=== PATIENT | male | born 1955 | race Two or more races ===

== ENCOUNTER 2022-06-24 10:37 | Emergency (ER) | payer MEDICARE, MEDICAID ==
[~2022-06-24] VITALS: Ht 175.3 cm; Wt 87.5 kg
[2022-06-24 11:14] LABS: Basophils # (auto) 0 10 ^3/uL (0-0.2); Basophils % (auto) 0.4 % (0.0-2.0); Eosinophils # (auto) 0.1 10 ^3/uL (0-0.8); Eosinophils % (auto) 1.2 % (0.0-7.0); Hematocrit 46.4 % (41.0-53.0); Lymphocytes # (auto) 1.8 10 ^3/uL (0.4-5.4); Lymphocytes % (auto) 27.6 % (10.0-50.0); Mean Corpuscular Hemoglobin 29.5 pg (28.0-32.0); Mean Corpuscular Hgb Conc. 34.5 g/dL (32.0-36.0); Mean Corpuscular Volume 85.3 fL (80.0-100.0); Monocytes # (auto) 0.5 10 ^3/uL (0-1.3); Monocytes % (auto) 7.9 % (0.0-12.0); Neutrophils # (auto) 4.2 10 ^3/uL (1.6-8.6); Neutrophils % (auto) 62.9 % (37.0-80.0); Nucleated Red Blood Cells % 0.1 %; Red Blood Cells 5.44 10^6/uL (4.5-5.90); Red Cell Distribution Width 13.5 % (11.8-14.3); White Blood Cell 6.6 10^3/uL (4.4-10.8)
[2022-06-24] MEDS ORDERED: cloNIDine HCL 0.1 MG TAB PO ONE (11:15)
[2022-06-24 11:34] LABS: Calcium 9.1 mg/dL (8.5-10.1); Potassium 3.8 mmol/L (3.5-5.1)
[2022-06-24 11:36] LABS: BUN/Creatinine Ratio 17.8; Bilirubin, Total 0.9 mg/dL (0.2-1.0); Total Protein 7.4 g/dL (6.4-8.2)
[2022-06-24] MEDS ORDERED: LOSA-69 PO (12:51)
[2022-06-24] MEDS ORDERED: HYDR2.5C39 TOP (12:52)
[2022-06-24 15:13] VITALS: BP 163/116
== END 2022-06-24 15:23 | disposition home or self-care (01) ==
LOC: ER 10:37
DX: I16.0 Hypertensive urgency (principal); K64.9 Unspecified hemorrhoids; Z79.899 Other long term (current) drug therapy
CPT/HCPCS: 36415; 74176; 80053; 85025; 93005

== ENCOUNTER 2022-08-08 08:19 | Inpatient (IN) | payer MEDICARE, MEDICAID ==
[~2022-08-08] VITALS: Ht 170.2 cm; Wt 89.0 kg
[~2022-08-08 08:19] MED LIST: HYDR2.5C39 TOP; LOSA-69 PO
[2022-08-08 09:01] LABS: Urine Bacteria NONE SEEN /hpf (None Seen); Urine Blood 1+ /uL (Negative); Urine Specific Gravity 1.008 (1.001-1.035); Urine WBC <1 /hpf (0 - 3)
[2022-08-08 10:32] LABS: Basophils # (auto) 0.1 10 ^3/uL (0-0.2); Basophils % (auto) 0.5 % (0.0-2.0); Eosinophils # (auto) 0 10 ^3/uL (0-0.8); Eosinophils % (auto) 0.1 % (0.0-7.0); Hematocrit 52.9 % (41.0-53.0); Hemoglobin 17.6 g/dL (13.5-17.5); Lymphocytes # (auto) 0.9 10 ^3/uL (0.4-5.4); Mean Corpuscular Hemoglobin 29.3 pg (28.0-32.0); Mean Corpuscular Hgb Conc. 33.2 g/dL (32.0-36.0); Mean Corpuscular Volume 88.1 fL (80.0-100.0); Monocytes # (auto) 1.5 10 ^3/uL (0-1.3); Monocytes % (auto) 9.6 % (0.0-12.0); Neutrophils # (auto) 13.1 10 ^3/uL (1.6-8.6); Neutrophils % (auto) 83.8 % (37.0-80.0); Nucleated Red Blood Cells % 0.1 %; Red Cell Distribution Width 13.6 % (11.8-14.3); White Blood Cell 15.6 10^3/uL (4.4-10.8)
[2022-08-08 10:55] LABS: Albumin 4.1 g/dL (3.4-5.0); Calcium 9.6 mg/dL (8.5-10.1); Potassium 4.4 mmol/L (3.5-5.1)
[2022-08-08 11:00] LABS: BUN/Creatinine Ratio 10.6; Bilirubin, Total 1.8 mg/dL (0.2-1.0); Total Protein 8.3 g/dL (6.4-8.2)
[2022-08-08] MEDS ORDERED: SODIUM CHLORIDE 0.9% 500 ML IVB ONE (11:30)
[2022-08-08] MEDS ORDERED: SODIUM CHLORIDE 0.9% 1,000 ML IV ONE ×2 (11:30→17:30)
[2022-08-08 11:47] LABS: Magnesium 2.8 mg/dL (1.6-2.6)
[2022-08-08 11:48] LABS: INR 0.99 (0.9-1.15); Partial Thromboplastin Time 28.5 sec (24.6-33.4)
[2022-08-08] MEDS ORDERED: cloNIDine HCL 0.1 MG TAB PO ONE (12:00)
[2022-08-08] MEDS ORDERED: TAMSULOSIN HYDROCHLORIDE 0.4 MG CAP PO ONE (14:00)
[2022-08-08] MEDS ORDERED: cefTRIAXone 1GM/50ML D5W 50 ML IV ONE ×2 (14:30→16:30)
[2022-08-08] MEDS ORDERED: TAM04C PO (15:06)
[2022-08-08] MEDS ORDERED: FINA5TAB4 PO (15:06)
[2022-08-08] MEDS ORDERED: DOXY100C PO (15:06)
[2022-08-08] MEDS ORDERED: hydrALAZINE HCL 20 MG/ML VL IV ONE (16:30)
[2022-08-08] MEDS ORDERED: LABETALOL HCL 5 MG/ML 4ML SYRINGE IV ONE (16:30)
[2022-08-08] MEDS ORDERED: DOCUSATE SOD 100 MG CAP PO PRN (17:15)
[2022-08-08] MEDS ORDERED: HYDROcodone-ACET 5/325MG TAB PO PRN (17:15)
[2022-08-08] MEDS ORDERED: MORPHINE SULFATE INJ 2 MG/ml SYRG IV PRN (17:15)
[2022-08-08] MEDS ORDERED: ONDANSETRON HCL 4 MG/2 ML VIAL IV PRN (17:15)
[2022-08-08] MEDS ORDERED: ACETAMINOPHEN 325 MG TAB PO PRN (17:15)
[2022-08-08] MEDS: SODIUM CHLORIDE 0.9% 1,000 ML IV SCH (17:15)
[2022-08-08 18:10] LABS: Cholesterol 205 mg/dL (< 200); Triglycerides 68 mg/dL (< 150)
[2022-08-08 18:12] LABS: HDL Cholesterol 69 mg/dL (40-59); LDL Cholesterol 133 mg/dL (< 100)
[2022-08-09 01:07] VITALS: BP 146/89
[2022-08-09] MEDS: SODIUM CHLORIDE 0.9% 1,000 ML IV SCH ×2 (01:44→13:15)
[2022-08-09 05:00] VITALS: BP 129/85
[2022-08-09 06:34] LABS: Basophils # (auto) 0.1 10 ^3/uL (0-0.2); Basophils % (auto) 0.9 % (0.0-2.0); Eosinophils # (auto) 0.4 10 ^3/uL (0-0.8); Eosinophils % (auto) 3.7 % (0.0-7.0); Hematocrit 41.3 % (41.0-53.0); Hemoglobin 14.4 g/dL (13.5-17.5); Lymphocytes # (auto) 1.4 10 ^3/uL (0.4-5.4); Mean Corpuscular Hemoglobin 30.4 pg (28.0-32.0); Mean Corpuscular Hgb Conc. 34.8 g/dL (32.0-36.0); Mean Corpuscular Volume 87.3 fL (80.0-100.0); Monocytes # (auto) 1.2 10 ^3/uL (0-1.3); Monocytes % (auto) 12.5 % (0.0-12.0); Neutrophils # (auto) 6.7 10 ^3/uL (1.6-8.6); Neutrophils % (auto) 68.9 % (37.0-80.0); Nucleated Red Blood Cells % 0.1 %; Red Blood Cells 4.73 10^6/uL (4.5-5.90); Red Cell Distribution Width 13.6 % (11.8-14.3); White Blood Cell 9.8 10^3/uL (4.4-10.8)
[2022-08-09 07:10] LABS: Albumin 2.8 g/dL (3.4-5.0); BUN/Creatinine Ratio 16.2; Bilirubin, Total 1.2 mg/dL (0.2-1.0); Calcium 8.3 mg/dL (8.5-10.1); Potassium 4.1 mmol/L (3.5-5.1); Total Protein 5.5 g/dL (6.4-8.2)
[2022-08-09 08:46] VITALS: BP 135/93
[2022-08-09] MEDS: cefTRIAXone 1GM/50ML D5W 50 ML IV SCH (09:19)
[2022-08-09] MEDS: FINASTERIDE 5 MG TAB PO SCH (09:19)
[2022-08-09] MEDS: LOSARTAN POTASSIUM 50 MG TAB PO SCH (09:20)
[2022-08-09] MEDS ORDERED: ENOXAPARIN SOD 40 MG/0.4 ML SYRINGE SC SCH (10:00)
[2022-08-09 13:21] VITALS: BP 156/100
[2022-08-09 17:00] VITALS: BP 166/104
[2022-08-09] MEDS: TAMSULOSIN HYDROCHLORIDE 0.4 MG CAP PO SCH (18:13)
[2022-08-09] MEDS: hydrALAZINE HCL 20 MG/ML VL IV PRN (18:32)
[2022-08-09 22:00] VITALS: BP 160/110
[2022-08-09] MEDS ORDERED: ATORVASTATIN 20 MG TAB PO SCH (22:00)
[2022-08-09] MEDS ORDERED: LABETALOL HCL 5 MG/ML 4ML SYRINGE IV ONE (22:15)
[2022-08-10] MEDS: SODIUM CHLORIDE 0.9% 1,000 ML IV SCH (02:05)
[2022-08-10] MEDS: hydrALAZINE HCL 20 MG/ML VL IV PRN (04:01)
[2022-08-10 05:00] VITALS: BP 160/105
[2022-08-10 07:23] LABS: Basophils # (auto) 0.1 10 ^3/uL (0-0.2); Basophils % (auto) 1.4 % (0.0-2.0); Eosinophils # (auto) 0.4 10 ^3/uL (0-0.8); Eosinophils % (auto) 5.3 % (0.0-7.0); Hematocrit 40.6 % (41.0-53.0); Lymphocytes # (auto) 1.7 10 ^3/uL (0.4-5.4); Lymphocytes % (auto) 23.2 % (10.0-50.0); Mean Corpuscular Hemoglobin 30.1 pg (28.0-32.0); Mean Corpuscular Hgb Conc. 34.6 g/dL (32.0-36.0); Mean Corpuscular Volume 87.2 fL (80.0-100.0); Monocytes # (auto) 0.8 10 ^3/uL (0-1.3); Monocytes % (auto) 10.7 % (0.0-12.0); Neutrophils # (auto) 4.3 10 ^3/uL (1.6-8.6); Neutrophils % (auto) 59.4 % (37.0-80.0); Red Blood Cells 4.66 10^6/uL (4.5-5.90); Red Cell Distribution Width 13.4 % (11.8-14.3); White Blood Cell 7.2 10^3/uL (4.4-10.8)
[2022-08-10 07:35] LABS: Calcium 8.3 mg/dL (8.5-10.1); Potassium 3.8 mmol/L (3.5-5.1)
[2022-08-10 07:39] LABS: BUN/Creatinine Ratio 25.3
[2022-08-10 08:00] VITALS: BP 156/99
[2022-08-10] MEDS: cefTRIAXone 1GM/50ML D5W 50 ML IV SCH (09:17)
[2022-08-10] MEDS: FINASTERIDE 5 MG TAB PO SCH (09:18)
[2022-08-10] MEDS: LOSARTAN POTASSIUM 50 MG TAB PO SCH (09:18)
[2022-08-10] MEDS ORDERED: ATOR20TA50 PO (11:58)
[2022-08-10] MEDS ORDERED: TAM04C PO (11:58)
[2022-08-10] MEDS ORDERED: LEVO500T31 PO (11:58)
[2022-08-10] MEDS ORDERED: LOSA-69 PO (11:58)
[2022-08-10 12:00] VITALS: BP 158/100
[2022-08-10 15:55] VITALS: BP 156/99
[2022-08-10 16:00] VITALS: BP 164/116
[2022-08-10] MEDS: TAMSULOSIN HYDROCHLORIDE 0.4 MG CAP PO SCH (18:15)
== END 2022-08-10 18:40 | disposition home or self-care (01) | DRG 304 ==
LOC: ER 08:19 → OVERFLOW 17:14 → WEST WING 23:30
PROVIDERS: ADMIT Nurse Practitioner Family; ATTEND Internal Medicine
DX: I16.0 Hypertensive urgency (principal); N17.0 Acute kidney failure with tubular necrosis; N13.6 Pyonephrosis; K43.9 Ventral hernia without obstruction or gangrene; N32.0 Bladder-neck obstruction; N40.1 Benign prostatic hyperplasia with lower urinary tract symptoms; K64.9 Unspecified hemorrhoids; K42.9 Umbilical hernia without obstruction or gangrene; Z20.822 Contact with and (suspected) exposure to COVID-19; I10 Essential (primary) hypertension; E86.0 Dehydration; R33.8 Other retention of urine; E78.5 Hyperlipidemia, unspecified; E66.9 Obesity, unspecified; Z79.899 Other long term (current) drug therapy; Z91.14 Patient's other noncompliance with medication regimen; Z68.30 Body mass index [BMI] 30.0-30.9, adult; K57.90 Diverticulosis of intestine, part unspecified, without perforation or abscess without bleeding
CPT/HCPCS: 36415; 71046; 74176; 76775; 80048; 80053; 80061; 81001; 83036; 83690; 83735; 84154; 85025; 85610; 85730; 87040; 87426; G0378; J0696; J3490

== ENCOUNTER → 2022-09-02 | Outpatient (CLI) | payer MEDICARE, MEDICAID ==
[~2022-09-02] MED LIST changes: +ATOR20TA50 PO; +LEVO500T31 PO; +TAM04C PO
[2022-09-02 10:47] LABS: BUN/Creatinine Ratio 16.9; Calcium 9.2 mg/dL (8.5-10.1)
== END | disposition home or self-care (01) ==
LOC: LAB 09:40
PROVIDERS: ATTEND Urology
DX: N13.2 Hydronephrosis with renal and ureteral calculous obstruction (principal); R33.9 Retention of urine, unspecified; N40.1 Benign prostatic hyperplasia with lower urinary tract symptoms
CPT/HCPCS: 36415; 80048; 84153

== ENCOUNTER → 2022-11-03 | Outpatient (CLI) | payer MEDICARE, MEDICAID ==
[2022-11-03 12:08] LABS: Basophils # (auto) 0.1 10 ^3/uL (0-0.2); Basophils % (auto) 0.8 % (0.0-2.0); Eosinophils # (auto) 0.1 10 ^3/uL (0-0.8); Eosinophils % (auto) 2.1 % (0.0-7.0); Hematocrit 47.3 % (41.0-53.0); Hemoglobin 15.7 g/dL (13.5-17.5); Lymphocytes # (auto) 1.7 10 ^3/uL (0.4-5.4); Lymphocytes % (auto) 26.3 % (10.0-50.0); Mean Corpuscular Hemoglobin 28.1 pg (28.0-32.0); Mean Corpuscular Hgb Conc. 33.2 g/dL (32.0-36.0); Mean Corpuscular Volume 84.5 fL (80.0-100.0); Monocytes # (auto) 0.7 10 ^3/uL (0-1.3); Monocytes % (auto) 10.4 % (0.0-12.0); Neutrophils % (auto) 60.4 % (37.0-80.0); Nucleated Red Blood Cells % 0.1 %; Red Cell Distribution Width 13.8 % (11.8-14.3); White Blood Cell 6.6 10^3/uL (4.4-10.8)
[2022-11-03 12:37] LABS: Potassium 4.4 mmol/L (3.5-5.1)
[2022-11-03 12:51] LABS: BUN/Creatinine Ratio 16.7; Calcium 9.1 mg/dL (8.5-10.1); Total Protein 8.2 g/dL (6.4-8.2)
[2022-11-03 13:17] LABS: Urine Bacteria FEW /hpf (None Seen); Urine Blood TRACE /uL (Negative); Urine Specific Gravity 1.003 (1.001-1.035); Urine WBC 12 /hpf (0 - 3)
== END | disposition home or self-care (01) ==
LOC: LAB 11:40
PROVIDERS: ATTEND Student in an Organized Health Care Education/Training Program
DX: I10 Essential (primary) hypertension (principal); N40.0 Benign prostatic hyperplasia without lower urinary tract symptoms; R73.9 Hyperglycemia, unspecified
CPT/HCPCS: 36415; 80053; 80061; 81001; 83036; 84153; 84443; 85025

== ENCOUNTER 2022-11-11 06:03 | Day surgery (SDC) | payer MEDICARE, MEDICAID ==
[2022-11-09 12:37] LABS: Basophils # (auto) 0.1 10 ^3/uL (0-0.2); Basophils % (auto) 1.4 % (0.0-2.0); Eosinophils # (auto) 0.1 10 ^3/uL (0-0.8); Eosinophils % (auto) 1.9 % (0.0-7.0); Mean Corpuscular Hemoglobin 28.3 pg (28.0-32.0); Mean Corpuscular Hgb Conc. 33.9 g/dL (32.0-36.0); Mean Corpuscular Volume 83.5 fL (80.0-100.0); Monocytes # (auto) 0.7 10 ^3/uL (0-1.3); Neutrophils # (auto) 4.9 10 ^3/uL (1.6-8.6); Neutrophils % (auto) 62.7 % (37.0-80.0); Nucleated Red Blood Cells % 0.3 %; Red Blood Cells 5.63 10^6/uL (4.5-5.90); Red Cell Distribution Width 14.2 % (11.8-14.3); White Blood Cell 7.8 10^3/uL (4.4-10.8)
[2022-11-09 12:48] LABS: Urine Bacteria MANY /hpf (None Seen); Urine Blood Negative /uL (Negative); Urine Mucus FEW (None Seen); Urine WBC 46 /hpf (0 - 3)
[2022-11-09 12:51] LABS: Partial Thromboplastin Time 27.6 sec (24.6-33.4)
[2022-11-09 13:11] LABS: Potassium 4.2 mmol/L (3.5-5.1)
[2022-11-09 13:19] LABS: Albumin 3.9 g/dL (3.4-5.0); BUN/Creatinine Ratio 16.5; Calcium 9.5 mg/dL (8.5-10.1)
[~2022-11-11] VITALS: Ht 175.3 cm; Wt 86.2 kg
[2022-11-11] MEDS ORDERED: CIPROFLOXACIN 400MG/200ML 200 ML IV ONE (06:49)
[2022-11-11] MEDS ORDERED: PROPOFOL 10 MG/ML 20 ML IV ONE (06:58)
[2022-11-11] MEDS ORDERED: GLYCOPYRROLATE 0.2 MG/ML 1ML VIAL ONE (06:58)
[2022-11-11] MEDS ORDERED: ONDANSETRON HCL 4 MG/2 ML VIAL ONE (06:58)
[2022-11-11] MEDS ORDERED: DexAMETHasone SOD PHOS 10MG/1ML VIAL INJ ONE (06:58)
[2022-11-11] MEDS ORDERED: LIDOCAINE 1%HCL (LOCAL ANESTH) 10 ML MDV ONE (07:01)
[2022-11-11] MEDS ORDERED: LIDOCAINE 1% (LOCAL ANESTH.) PF 5ml SDV ONE (07:01)
[2022-11-11] MEDS ORDERED: LIDOCAINE 2%HCL (LOCAL ANESTH.) INJ 10ml MDV ONE (07:01)
[2022-11-11] MEDS ORDERED: fentaNYL CITRATE 100 MCG/2 ML VL ONE (07:13)
[2022-11-11] MEDS ORDERED: LIDOCAINE 2% JELLY 11ml (GLYDO) ONE (07:26)
[2022-11-11] MEDS ORDERED: ESMOLOL HCL 10 ML IV ONE (07:37)
[2022-11-11] MEDS ORDERED: hydrALAZINE HCL 20 MG/ML VL ONE (07:45)
[2022-11-11] MEDS ORDERED: HYDROmorphone HCL 2 MG/ML VL/or syr IV PRN (09:30)
[2022-11-11] MEDS ORDERED: fentaNYL CITRATE 100 MCG/2 ML VL IV PRN (09:30)
[2022-11-11] MEDS ORDERED: hydrALAZINE HCL 20 MG/ML VL IV PRN (09:30)
[2022-11-11] MEDS ORDERED: FLUMAZENIL 0.1 MG/ML INJ 10ML MDV IV PRN (09:30)
[2022-11-11] MEDS ORDERED: ePHEDrine SULFATE 50 MG/ML AMP IV PRN (09:30)
[2022-11-11] MEDS ORDERED: ONDANSETRON HCL 4 MG/2 ML VIAL IV PRN (09:30)
[2022-11-11] MEDS ORDERED: NALOXONE HCL 0.4 MG/ML VIAL IV PRN (09:30)
[2022-11-11] MEDS ORDERED: LABETALOL HCL 5 MG/ML 4ML SYRINGE IV PRN (09:30)
[2022-11-11 10:15] VITALS: BP 144/99
[2022-11-12] MEDS ORDERED: FIN5T PO (23:27)
== END 2022-11-11 10:25 | disposition home or self-care (01) ==
LOC: SUR 06:03
PROVIDERS: ATTEND Urology
DX: N40.1 Benign prostatic hyperplasia with lower urinary tract symptoms (principal); R97.20 Elevated prostate specific antigen [PSA]; R33.9 Retention of urine, unspecified; I10 Essential (primary) hypertension; E78.5 Hyperlipidemia, unspecified; I49.9 Cardiac arrhythmia, unspecified; Z79.899 Other long term (current) drug therapy; Z98.890 Other specified postprocedural states; Z20.822 Contact with and (suspected) exposure to COVID-19
CPT/HCPCS: 52601; J0360; J0744; J1100; J2001; J2405; J2704; J3010; 36415; 80053; 81001; 85025; 85610; 85730; 86850; 86900; 86901; 87086

== ENCOUNTER 2022-11-12 11:37 | Inpatient (IN) | payer MEDICARE, MEDICAID ==
[~2022-11-12] VITALS: Ht 175.3 cm; Wt 85.1 kg
[2022-11-12 12:24] LABS: Basophils # (auto) 0 10 ^3/uL (0-0.2); Eosinophils # (auto) 0 10 ^3/uL (0-0.8); Eosinophils % (auto) 0.1 % (0.0-7.0); Lymphocytes # (auto) 0.7 10 ^3/uL (0.4-5.4); Red Blood Cells 6.03 10^6/uL (4.5-5.90)
[2022-11-12 12:26] LABS: Basophils % (auto) 0.2 % (0.0-2.0); Hematocrit 51.5 % (41.0-53.0); Hemoglobin 17.3 g/dL (13.5-17.5); Lymphocytes % (auto) 4.1 % (10.0-50.0); Mean Corpuscular Hemoglobin 28.6 pg (28.0-32.0); Mean Corpuscular Hgb Conc. 33.6 g/dL (32.0-36.0); Mean Corpuscular Volume 85.3 fL (80.0-100.0); Monocytes # (auto) 1.5 10 ^3/uL (0-1.3); Monocytes % (auto) 8.5 % (0.0-12.0); Neutrophils # (auto) 15.5 10 ^3/uL (1.6-8.6); Neutrophils % (auto) 87.1 % (37.0-80.0); Nucleated Red Blood Cells % 0.1 %; White Blood Cell 17.8 10^3/uL (4.4-10.8)
[2022-11-12] MEDS ORDERED: cloNIDine HCL 0.1 MG TAB PO ONE (12:30)
[2022-11-12 12:47] LABS: INR 1.07 (0.9-1.15); Partial Thromboplastin Time 26.7 sec (24.6-33.4)
[2022-11-12] MEDS ORDERED: ACETAMINOPHEN 325 MG TAB PO PRN (15:30)
[2022-11-12] MEDS ORDERED: ONDANSETRON HCL 4 MG/2 ML VIAL IV PRN (15:30)
[2022-11-12] MEDS ORDERED: METOCLOPRAMIDE HCL 5MG/ml INJ 2ml VIAL IV PRN (15:30)
[2022-11-12] MEDS ORDERED: cloNIDine HCL 0.1 MG TAB PO PRN (15:30)
[2022-11-12] MEDS ORDERED: DOCUSATE SOD 100 MG CAP PO PRN (15:30)
[2022-11-12] MEDS ORDERED: SODIUM CHLORIDE 0.9% 1,000 ML IV SCH (15:30)
[2022-11-12] MEDS ORDERED: MORPHINE SULFATE INJ 2 MG/ml SYRG IV PRN (15:30)
[2022-11-12] MEDS ORDERED: TEMAZEPAM 15 MG CAP PO PRN (15:30)
[2022-11-12] MEDS ORDERED: MAALOX PLUS or MAALOX 30 ML PO PRN (15:30)
[2022-11-12 15:49] LABS: Urine Bacteria NONE SEEN /hpf (None Seen); Urine Blood 3+ /uL (Negative); Urine WBC 808 /hpf (0 - 3); Urine WBC Clumps PRESENT /hpf (None Seen)
[2022-11-12 15:54] LABS: Urine Specific Gravity 1.018 (1.001-1.035)
[2022-11-12] MEDS: cefTRIAXone 1GM/50ML D5W 50 ML IV SCH (16:32)
[2022-11-12 22:00] VITALS: BP 171/106
[2022-11-12] MEDS ORDERED: FIN5T PO (23:27)
[2022-11-13 05:00] VITALS: BP 147/100
[2022-11-13 06:34] LABS: Basophils # (auto) 0 10 ^3/uL (0-0.2); Basophils % (auto) 0.4 % (0.0-2.0); Eosinophils # (auto) 0.1 10 ^3/uL (0-0.8); Eosinophils % (auto) 0.5 % (0.0-7.0); Hematocrit 45.5 % (41.0-53.0); Hemoglobin 15.1 g/dL (13.5-17.5); Lymphocytes # (auto) 1.7 10 ^3/uL (0.4-5.4); Lymphocytes % (auto) 13.2 % (10.0-50.0); Mean Corpuscular Hemoglobin 28.2 pg (28.0-32.0); Mean Corpuscular Hgb Conc. 33.1 g/dL (32.0-36.0); Mean Corpuscular Volume 85.2 fL (80.0-100.0); Monocytes # (auto) 1.6 10 ^3/uL (0-1.3); Monocytes % (auto) 11.8 % (0.0-12.0); Neutrophils # (auto) 9.8 10 ^3/uL (1.6-8.6); Neutrophils % (auto) 74.1 % (37.0-80.0); Red Blood Cells 5.34 10^6/uL (4.5-5.90); Red Cell Distribution Width 14.8 % (11.8-14.3); White Blood Cell 13.2 10^3/uL (4.4-10.8)
[2022-11-13 07:18] LABS: Potassium 5.3 mmol/L (3.5-5.1)
[2022-11-13 07:26] LABS: BUN/Creatinine Ratio 23.4; Calcium 9.2 mg/dL (8.5-10.1)
[2022-11-13 08:00] VITALS: BP 173/105
[2022-11-13] MEDS: cefTRIAXone 1GM/50ML D5W 50 ML IV SCH (09:11)
[2022-11-13 12:00] VITALS: BP 142/88
[2022-11-13] MEDS ORDERED: amLODIPine BESYLATE 5 MG TAB PO ONE (12:15)
[2022-11-13] MEDS: SODIUM CHLORIDE 0.9% 1,000 ML IV SCH ×2 (15:30→22:46)
[2022-11-13 16:00] VITALS: BP 145/94
[2022-11-13] MEDS: HYDROcodone-ACET 5/325MG TAB PO PRN (16:43)
[2022-11-13] MEDS: TAMSULOSIN HYDROCHLORIDE 0.4 MG CAP PO SCH (18:17)
[2022-11-13 21:47] VITALS: BP 129/82
[2022-11-14 04:46] VITALS: BP 156/97
[2022-11-14] MEDS: HYDROcodone-ACET 5/325MG TAB PO PRN ×3 (05:25→18:10)
[2022-11-14 06:12] LABS: Potassium 4.5 mmol/L (3.5-5.1)
[2022-11-14 06:21] LABS: Calcium 8.7 mg/dL (8.5-10.1)
[2022-11-14 08:00] VITALS: BP 158/103
[2022-11-14 08:30] VITALS: BP 158/103
[2022-11-14] MEDS: cefTRIAXone 1GM/50ML D5W 50 ML IV SCH (10:08)
[2022-11-14] MEDS: amLODIPine BESYLATE 5 MG TAB PO SCH (10:09)
[2022-11-14] MEDS: FINASTERIDE 5 MG TAB PO SCH (10:09)
[2022-11-14] MEDS: cloNIDine HCL 0.1 MG TAB PO PRN (12:35)
[2022-11-14 13:00] VITALS: BP 171/69
[2022-11-14] MEDS: SODIUM CHLORIDE 0.9% 1,000 ML IV SCH ×2 (13:35→18:00)
[2022-11-14 16:55] VITALS: BP 151/95
[2022-11-14] MEDS: TAMSULOSIN HYDROCHLORIDE 0.4 MG CAP PO SCH (18:05)
[2022-11-14 22:00] VITALS: BP 150/102
[2022-11-15] MEDS: SODIUM CHLORIDE 0.9% 1,000 ML IV SCH (02:02)
[2022-11-15 05:00] VITALS: BP 167/99
[2022-11-15] MEDS: cloNIDine HCL 0.1 MG TAB PO PRN ×2 (05:10→11:47)
[2022-11-15] MEDS: HYDROcodone-ACET 5/325MG TAB PO PRN ×3 (07:35→22:51)
[2022-11-15 08:05] VITALS: BP 165/98
[2022-11-15 08:15] VITALS: BP 165/98
[2022-11-15] MEDS: cefTRIAXone 1GM/50ML D5W 50 ML IV SCH (10:19)
[2022-11-15] MEDS: FINASTERIDE 5 MG TAB PO SCH (10:20)
[2022-11-15] MEDS: amLODIPine BESYLATE 5 MG TAB PO SCH (10:20)
[2022-11-15 11:43] VITALS: BP 172/102
[2022-11-15 16:49] VITALS: BP 165/104
[2022-11-15] MEDS: TAMSULOSIN HYDROCHLORIDE 0.4 MG CAP PO SCH (18:31)
[2022-11-15 22:00] VITALS: BP 133/82
[2022-11-16 05:00] VITALS: BP 170/109
[2022-11-16] MEDS: cloNIDine HCL 0.1 MG TAB PO PRN (07:30)
[2022-11-16] MEDS: cefTRIAXone 1GM/50ML D5W 50 ML IV SCH (09:24)
[2022-11-16] MEDS: amLODIPine BESYLATE 5 MG TAB PO SCH (09:24)
[2022-11-16] MEDS: FINASTERIDE 5 MG TAB PO SCH (09:24)
[2022-11-16 09:45] VITALS: BP 166/99
[2022-11-16] MEDS ORDERED: DOCUSATE SOD 100 MG CAP PO ONE (12:15)
[2022-11-16] MEDS ORDERED: LOSARTAN POTASSIUM 50 MG TAB PO ONE (12:15)
[2022-11-16] MEDS ORDERED: METOCLOPRAMIDE HCL 5MG/ml INJ 2ml VIAL IV PRN (12:15)
[2022-11-16] MEDS ORDERED: LACTULOSE 20Gm/30ML SOLN PO ONE (12:15)
[2022-11-16 12:30] VITALS: BP 154/107
[2022-11-16] MEDS ORDERED: SODIUM CHLORIDE 0.9% 1,000 ML IV ONE ×2 (14:15)
[2022-11-16] MEDS ORDERED: TAMSULOSIN HYDROCHLORIDE 0.4 MG CAP PO SCH (14:30)
[2022-11-16 22:00] VITALS: BP 140/89
[2022-11-16] MEDS: HYDROcodone-ACET 5/325MG TAB PO PRN (23:00)
[2022-11-17 05:00] VITALS: BP 155/102
[2022-11-17] MEDS: cloNIDine HCL 0.1 MG TAB PO PRN (06:29)
[2022-11-17 07:10] LABS: Basophils # (auto) 0.1 10 ^3/uL (0-0.2); Basophils % (auto) 0.8 % (0.0-2.0); Eosinophils # (auto) 0.4 10 ^3/uL (0-0.8); Eosinophils % (auto) 4.9 % (0.0-7.0); Hemoglobin 13.8 g/dL (13.5-17.5); Lymphocytes # (auto) 1.4 10 ^3/uL (0.4-5.4); Lymphocytes % (auto) 17.1 % (10.0-50.0); Mean Corpuscular Hemoglobin 28.5 pg (28.0-32.0); Mean Corpuscular Hgb Conc. 33.6 g/dL (32.0-36.0); Mean Corpuscular Volume 84.9 fL (80.0-100.0); Monocytes # (auto) 0.8 10 ^3/uL (0-1.3); Monocytes % (auto) 10.2 % (0.0-12.0); Neutrophils # (auto) 5.6 10 ^3/uL (1.6-8.6); Nucleated Red Blood Cells % 0.1 %; Red Blood Cells 4.83 10^6/uL (4.5-5.90); Red Cell Distribution Width 14.4 % (11.8-14.3); White Blood Cell 8.3 10^3/uL (4.4-10.8)
[2022-11-17 07:20] LABS: BUN/Creatinine Ratio 21.7; Calcium 8.9 mg/dL (8.5-10.1); Potassium 4.2 mmol/L (3.5-5.1)
[2022-11-17 08:30] VITALS: BP 148/94
[2022-11-17] MEDS: amLODIPine BESYLATE 5 MG TAB PO SCH (08:39)
[2022-11-17] MEDS: LOSARTAN POTASSIUM 50 MG TAB PO SCH (08:39)
[2022-11-17] MEDS: FINASTERIDE 5 MG TAB PO SCH (08:39)
[2022-11-17] MEDS: cefTRIAXone 1GM/50ML D5W 50 ML IV SCH (08:53)
[2022-11-17 12:15] VITALS: BP 162/95
[2022-11-17 16:21] VITALS: BP 147/105
[2022-11-17] MEDS: HYDROcodone-ACET 5/325MG TAB PO PRN (19:59)
[2022-11-17 22:21] VITALS: BP 135/93
[2022-11-18] MEDS: HYDROcodone-ACET 5/325MG TAB PO PRN ×2 (01:41→06:36)
[2022-11-18 04:36] VITALS: BP 163/92
[2022-11-18] MEDS: LOSARTAN POTASSIUM 50 MG TAB PO SCH (08:20)
[2022-11-18] MEDS: amLODIPine BESYLATE 5 MG TAB PO SCH (08:21)
[2022-11-18] MEDS: FINASTERIDE 5 MG TAB PO SCH (08:21)
[2022-11-18 09:11] VITALS: BP 170/112
[2022-11-18] MEDS ORDERED: hydrALAZINE HCL 20 MG/ML VL IV PRN (12:15)
[2022-11-18] MEDS: cefTRIAXone 1GM/50ML D5W 50 ML IV SCH (12:18)
[2022-11-18 12:45] VITALS: BP 163/107
[2022-11-18 16:43] VITALS: BP 155/98
[2022-11-18] MEDS ORDERED: FLEET ENEMA(ADULT) 135 ML PR ONE (18:00)
[2022-11-18 22:00] VITALS: BP 157/90
[2022-11-19] MEDS ORDERED: DexAMETHasone SOD PHOS 10MG/1ML VIAL INJ ONE (00:37)
[2022-11-19] MEDS ORDERED: GLYCOPYRROLATE 0.2 MG/ML 1ML VIAL ONE (00:37)
[2022-11-19] MEDS ORDERED: ONDANSETRON HCL 4 MG/2 ML VIAL ONE (00:37)
[2022-11-19] MEDS ORDERED: fentaNYL CITRATE 100 MCG/2 ML VL ONE (00:37)
[2022-11-19] MEDS ORDERED: LIDOCAINE 2% (LOCAL ANESTH.) PF 5ml SDV ONE (00:37)
[2022-11-19] MEDS ORDERED: MIDAZOLAM HCL 2MG/2ML 2ml VIAL (1mg/ml) ONE (00:37)
[2022-11-19] MEDS ORDERED: MEPERIDINE HCL (25 MG/ML) 1ML VIAL ONE (00:37)
[2022-11-19] MEDS ORDERED: ePHEDrine SULFATE 50 MG/ML AMP ONE (00:37)
[2022-11-19] MEDS ORDERED: PROPOFOL 10 MG/ML 20 ML IV ONE (00:37)
[2022-11-19] MEDS ORDERED: SUCCINYLCHOLINE CHLORIDE 20 MG/ML 10ML VIAL IV ONE (01:10)
[2022-11-19] MEDS ORDERED: HYDROmorphone HCL 2 MG/ML VL/or syr ONE (01:20)
[2022-11-19 05:00] VITALS: BP 134/92
[2022-11-19 06:27] LABS: Basophils # (auto) 0 10 ^3/uL (0-0.2); Basophils % (auto) 0.3 % (0.0-2.0); Eosinophils # (auto) 0 10 ^3/uL (0-0.8); Eosinophils % (auto) 0.1 % (0.0-7.0); Hematocrit 42.5 % (41.0-53.0); Hemoglobin 14.7 g/dL (13.5-17.5); Lymphocytes # (auto) 0.6 10 ^3/uL (0.4-5.4); Lymphocytes % (auto) 6.2 % (10.0-50.0); Mean Corpuscular Hgb Conc. 34.6 g/dL (32.0-36.0); Mean Corpuscular Volume 83.7 fL (80.0-100.0); Monocytes # (auto) 0.2 10 ^3/uL (0-1.3); Monocytes % (auto) 2.6 % (0.0-12.0); Neutrophils # (auto) 8.3 10 ^3/uL (1.6-8.6); Neutrophils % (auto) 90.8 % (37.0-80.0); Nucleated Red Blood Cells % 0.1 %; Red Blood Cells 5.08 10^6/uL (4.5-5.90); White Blood Cell 9.2 10^3/uL (4.4-10.8)
[2022-11-19 06:42] LABS: Potassium 4.1 mmol/L (3.5-5.1)
[2022-11-19 06:47] LABS: BUN/Creatinine Ratio 17.4; Calcium 9.4 mg/dL (8.5-10.1)
[2022-11-19 09:00] VITALS: BP 145/94
[2022-11-19] MEDS: cefTRIAXone 1GM/50ML D5W 50 ML IV SCH (09:37)
[2022-11-19] MEDS: FINASTERIDE 5 MG TAB PO SCH (09:38)
[2022-11-19] MEDS: LOSARTAN POTASSIUM 50 MG TAB PO SCH (09:38)
[2022-11-19] MEDS: amLODIPine BESYLATE 5 MG TAB PO SCH (09:39)
[2022-11-19 13:00] VITALS: BP 146/90
[2022-11-19] MEDS ORDERED: LEVO500T31 PO (14:43)
[2022-11-19 15:46] VITALS: BP 145/94
== END 2022-11-19 17:43 | disposition home or self-care (01) | DRG 853 ==
LOC: ER 11:37 → OVERFLOW 15:38 → WEST WING 22:18
PROVIDERS: ADMIT Hospitalist; ATTEND Internal Medicine
PROC: 0T5C8ZZ Destruction of Bladder Neck, Via Natural or Artificial Opening Endoscopic (ICD-10-PCS; 2022-11-19)
PROC: 0VB08ZX Excision of Prostate, Via Natural or Artificial Opening Endoscopic, Diagnostic (ICD-10-PCS; 2022-11-19)
PROC: 0TCC8ZZ Extirpation of Matter from Bladder Neck, Via Natural or Artificial Opening Endoscopic (ICD-10-PCS; principal; 2022-11-19 00:28)
DX: A41.9 Sepsis, unspecified organism (principal); N17.0 Acute kidney failure with tubular necrosis; N39.0 Urinary tract infection, site not specified; R31.0 Gross hematuria; E78.5 Hyperlipidemia, unspecified; E87.5 Hyperkalemia; R33.8 Other retention of urine; Z20.822 Contact with and (suspected) exposure to COVID-19; I10 Essential (primary) hypertension; N40.1 Benign prostatic hyperplasia with lower urinary tract symptoms; Z90.79 Acquired absence of other genital organ(s)
CPT/HCPCS: 36415; 74176; 76775; 80048; 80053; 81001; 85025; 85610; 85730; 86850; 86900; 86901; 87086; 87426; 96365; G0378; J0330; J0696; J1100; J2001; J2250; J2405; J2704

== ENCOUNTER → 2022-12-03 | Outpatient (CLI) | payer MEDICARE, MEDICAID ==
[~2022-12-03] MED LIST changes: +FIN5T PO; -HYDR2.5C39 TOP
[2022-12-03 15:11] LABS: Urine Bacteria FEW /hpf (None Seen); Urine Blood 3+ /uL (Negative); Urine Mucus FEW (None Seen); Urine Specific Gravity 1.017 (1.001-1.035); Urine WBC 113 /hpf (0 - 3)
== END | disposition home or self-care (01) ==
LOC: LAB 14:47
PROVIDERS: ATTEND Urology
DX: N39.9 Disorder of urinary system, unspecified (principal); Z79.899 Other long term (current) drug therapy
CPT/HCPCS: 81001; 87086

== ENCOUNTER → 2023-04-27 | Outpatient (CLI) | payer MEDICARE, MEDICAID ==
[~2023-04-27] MED LIST changes: -LOSA-69 PO; +LOSA50TA46 PO; -TAM04C PO; +TAMS-35 PO
[2023-04-27 09:20] LABS: Urine Blood Negative /uL (Negative); Urine Specific Gravity 1.025 (1.001-1.035)
[2023-04-27 09:47] LABS: Albumin 3.8 g/dL (3.4-5.0); Calcium 8.5 mg/dL (8.5-10.1); Potassium 3.9 mmol/L (3.5-5.1)
[2023-04-27 09:54] LABS: BUN/Creatinine Ratio 13.6 (10.0-20.0); Bilirubin, Total 0.8 mg/dL (0.2-1.0); Total Protein 7.2 g/dL (6.4-8.2)
[2023-04-27 10:15] LABS: Micro Albumin 96.2 mg/L (0-30.0)
== END | disposition home or self-care (01) ==
LOC: LAB 08:58
PROVIDERS: ATTEND Student in an Organized Health Care Education/Training Program
DX: I10 Essential (primary) hypertension (principal); Z79.899 Other long term (current) drug therapy
CPT/HCPCS: 36415; 80053; 80061; 81003; 82043; 82570; 83036

== ENCOUNTER 2025-03-18 09:46 | Inpatient (IN) | payer BC, MEDICAID ==
[~2025-03-18] VITALS: Ht 175.3 cm; Wt 75.4 kg
[~2025-03-18 09:46] MED LIST changes: +LOSA-534 PO; -LOSA50TA46 PO
[2025-03-18 10:25] LABS: Urine Bacteria None Seen /hpf (None Seen)
--- NOTE | 2025-03-18 10:34 | ED.PDOC ---
History of Present Illness HPI Comments 69-year-old male presents with a chief complaint of rectal bleeding x 10 days. Patient states that he has been using the restroom and has been noticing that the toilet is filled with dark red blood. Patient does have a history of hemorrhoids, but is unsure if that is the cause of his bleeding. Patient denies any pain upon bowel movements. Chief Complaint: GI Bleed Time Seen by MD: 09:55 Primary Care Provider: YESSENIA Reviewed Notes: Medications, Allergies Allergies: Coded Allergies: NO KNOWN ALLERGIES (Unverified , 06/24/22) Home Meds Active Scripts Levofloxacin (Levaquin) 500 Mg Tab, 500 MG PO DAILY for 7 Days, #7 TAB Prov:MELLY GAYTAN MD 11/19/22 Atorvastatin Calcium (ATORVASTATIN CALCIUM) 20 Mg Tab, 20 MG PO HS for 30 Days, #30 TAB 3 Refills Prov:MELLY GAYTAN MD 08/10/22 Losartan Potassium (Losartan Potassium) 50 Mg Tab, 50 MG PO DAILY for 30 Days, #30 TAB 3 Refills Prov:MELLY GAYTAN MD 08/10/22 Tamsulosin Hcl (Flomax) 0.4 Mg Cap, 0.4 MG PO QPM for 30 Days, #30 CAP 2 Refills Prov:MELLY GAYTAN MD 08/10/22 Reported Medications Finasteride (Finasteride) 5 Mg Tab, 1 TAB PO DAILY 11/12/22 Information Source: Patient Mode of Arrival: Ambulatory Severity: Moderate Timing: Days Duration: Since onset Prehospital treatment: None Past Medical History PAST MEDICAL HISTORY: High Lipids, HTN Surgical History: Hernia Repair Family History Family History: Reviewed,noncontributory to illness Social History Smoker: Non-Smoker Alcohol: Denies ETOH Use Drugs: Denies Drug Use Lives In: Home Constitutional: denies: chills, diaphoresis, fatigue, fever, malaise, sweats, weakness, others EENTM: denies: blurred vision, double vision, ear bleeding, ear discharge, ear drainage, ear pain, ear ringing, eye pain, eye redness, hearing loss, mouth pain, mouth swelling, nasal discharge, nose bleeding, nose congestion, nose pain, photophobia, tearing, throat pain, throat swelling, voice changes, others Respiratory: denies: cough, hemoptysis, orthopnea, SOB at rest, shortness of breath, SOB with excertion, stridor, wheezing, others Cardiovascular: denies: chest pain, dizzy spells, diaphoresis, Dyspnea on exertion, edema, irregular heart beat, left arm pain, lightheadedness, palpitations, PND, syncope, others Gastrointestinal: reports: rectal bleeding; denies: abdomen distended, abdominal pain, blood streaked bowels, constipated, diarrhea, dysphagia, difficulty swallowing, hematemesis, melena, nausea, poor appetite, poor fluid intake, rectal pain, vomiting, others Genitourinary: denies: burning, dysuria, flank pain, frequency, hematuria, incontinence, penile discharge, penile sore, pain, testicle pain, testicle swelling, urgency, others Neurological: denies: dizziness, fainting, headache, left sided numbness, left sided weakness, numbness, paresthesia, pre-existing deficit, right sided numbness, right sided weakness, seizure, speech problems, tingling, tremors, we akness, others Musculoskeletal: denies: back pain, gout, joint pain, joint swelling, muscle pain, muscle stiffness, neck pain, others Integumetry: denies: bruises, change in color, change in hair/nails, dryness, laceration, lesions, lumps, rash, wounds, others Allergic/Immunocompromised: denies: Difficulty Healing, Frequent Infections, Hives, Itching, others Hematologic/Lymphatic: denies: anemia, blood clots, easy bleeding, easy bruising, swollen glands, others Endocrine: denies: excessive hunger, excessive sweating, excessive thirst, excessive urination, flushing, intolerance to cold, intolerance to heat, unexplained weight gain, unexplained weight loss, others Psychiatric: denies: anxiety, bipolar disorder, depression, hopeless, panic disorder, schizophrenia, sleepless, suicidal, others All Other Systems: Reviewed and Negative Physical Exam General Appearance: No Apparent Distress, Normal HEENT: Normal ENT Inspection, Pharynx Normal, TMs Normal Neck: Full Range of Motion, Non-Tender, Normal, Normal Inspection Respiratory: Chest Non-Tender, Lungs Clear, No Accessory Muscle Use, No Respiratory Distress, Normal Breath Sounds Cardiovascular: No Edema, No JVD, No Murmur, No Gallop, Normal Peripheral Pulses, Regular Rate/Rhythm Breast Exam: Deferred Gastrointestinal: No Organomegaly, Non Tender, No Pulsatile Mass, Normal Bowel Sounds, Soft Genitalia: Deferred Pelvic: Deferred Rectal: Deferred Extremities: No calf tenderness, Normal capillary refill, Normal inspection, Normal range of motion, Non-tender, No pedal edema Musculoskeletal : Apperance: Normal Neurologic: Alert, chassis wirer II-XII nml as Tested, No Motor Deficits, Normal Affect, Normal Mood, No Sensory Deficits Cerebellar Function: Normal Reflexes: Normal Skin: Dry, Normal Color, Warm Lymphatic: No Adenopathy Was a procedure done? Was a procedure done?: No Differential Dx Considerations may include: GI bleed, rectal cancer, hypertensive emergency, viral syndrome, pneumonia, X-Ray, Labs, Meds, VS Vital Signs Date Time Temp Pulse Resp B/P (MAP) Pulse Ox O2 Delivery O2 Flow Rate FiO2 03/18/25 10:57 98.2 80 18 206/125 (152) 99 98.2 03/18/25 10:57 80 18 99 Room Air 03/18/25 09:51 99.1 89 20 193/118 (143) 98 99.1 Lab Test 03/18/25 10:26 03/18/25 09:56 Range/Units White Blood Count 5.8 4.4-10.8 10^3/uL Red Blood Count 3.71 L 4.5-5.90 10^6/uL Hemoglobin 11.1 L 13.5-17.5 g/dL Hematocrit 32.4 L 41.0-53.0 % Mean Corpuscular Volume 87.5 80.0-100.0 fL Mean Corpuscular Hemoglobin 29.8 28.0-32.0 pg Mean Corpuscular Hemoglobin Concent 34.1 32.0-36.0 g/dL Red Cell Distribution Width 14.2 11.8-14.3 % Platelet Count 209 140-450 10^3/uL Mean Platelet Volume 9.6 6.9-10.8 fL Neutrophils (%) (Auto) 69.0 37.0-80.0 % Lymphocytes (%) (Auto) 20.9 10.0-50.0 % Monocytes (%) (Auto) 8.1 0.0-12.0 % Eosinophils (%) (Auto) 0.9 0.0-7.0 % Basophils (%) (Auto) 1.1 0.0-2.0 % Neutrophils # (Auto) 4.0 1.6-8.6 10 ^3/uL Lymphocytes # (Auto) 1.2 0.4-5.4 10 ^3/uL Monocytes # (Auto) 0.5 0-1.3 10 ^3/uL Eosinophils # (Auto) 0.1 0-0.8 10 ^3/uL Basophils # (Auto) 0.1 0-0.2 10 ^3/uL Nucleated Red Blood Cells 0.1 % Sodium Level 143 136-145 mmol/L Potassium Level 3.7 3.5-5.1 mmol/L Chloride Level 108 H 98-107 mmol/L Carbon Dioxide Level 26 20-31 mmol/L Anion Gap 9 5-15 Blood Urea Nitrogen 18 9-23 mg/dL Creatinine 0.91 0.700-1.30 mg/dL Glomerular Filtration Rate Calc 91 >90 mL/min BUN/Creatinine Ratio 19.8 10.0-20.0 Serum Glucose 99 74-106 mg/dL Calcium Level 9.9 8.7-10.4 mg/dL Urine Color Yellow Yellow Urine Clarity Clear Clear Urine pH 5.0 5.0-9.0 Urine Specific [place] 1.027 1.001-1.035 Urine Protein Negative Negative Urine Ketones Negative Negative Urine Blood Negative Negative /uL Urine Nitrite Negative Negative Urine Bilirubin Negative Negative Urine Urobilinogen Normal Negative mg/dL Urine Leukocyte Esterase Negative Negative /uL Urine RBC 1 0 - 3 /hpf Urine Microscopic WBC < 1 0-3 /HPF Urine Squamous Epithelial Cells Few <5 /hpf Urine Bacteria None seen None Seen /hpf Urine Mucus Few None Seen Urine Glucose Normal Normal mg/dL Time of 1ST Reevaluation: 10:25 Reevaluation 1ST: Unchanged Patient Education/Counseling: Diagnosis, Treatment, Need For Follow Up Family Education/Counseling: No Family Present Departure 1 Departure Time of Disposition: 12:56 (Patient presented with hypertension and symptoms concerning for hypertensive emergency. Patient is receiving iv blood pressure medications requiring intensive monitoring. Data: 1. I ordered and reviewed the result of at least 3 labs including a CBC, BMP, and Urinalysis. 2. I independently interpreted the following tests: CT Brain: Which appears benign. EKG which is Normal Sinus RhythmRisk:This patient has a high risk of morbidity due to further diagnostic testing or treatment and may suffer from an acute cardiac disorder. Workup reveals hypertensive emergency and patient should be admitted for further workup. and possible expert consultation. ) Impression: Primary Impression: Hypertensive emergency Additional Impressions: Bright red blood per rectum Generalized weakness Disposition: ADMITTED INPATIENT Admit to: Med Surg Condition: Guarded Critical Care Note Critical Care Time?: Yes Critical care comment: Hypertensive emergency Authorized and Performed by: Rainer Landeros MD Total critical care time: Approximately 42 minutes Due to a high probability of clinically significant, life threatening deterioration, the patient required my highest level of preparedness to intervene emergently and I personally spent this critical care time directly and personally managing the patient. This critical care time included obtaining a history; examining the patient; pulse oximetry; ordering and review of studies; arranging urgent treatment with development of a management plan; evaluation of patient's response to treatment; frequent reassessment; and, discussions with other providers. This critical care time was performed to assess and manage the high probability of imminent, life-threatening deterioration that could result in multi-organ failure. It was exclusive of separately billable procedures and treating other patients and teaching time. Please see my other sections and the rest of the note for further information on patient assessment and treatment. Stability Stability form required: No Heart Score Heart Score: Heart Score Response (Comments) Value History N/A 0 EKG N/A 0 Age N/A 0 Risk Factors N/A 0 Troponin N/A 0 Total 0 I personally scribed for RAINER LANDEROS MD ([email or web address]) on 03/18/25 at 10:34. Electronically submitted by Cl Betancourt ([email or web address]). RAINER LANDEROS MD Mar 18, 2025 10:34
[2025-03-18 10:41] LABS: Urine Blood Negative /uL (Negative); Urine Clarity Clear (Clear); Urine Color Yellow (Yellow); Urine Mucus FEW (None Seen); Urine Protein, UAD Negative (Negative); Urine Specific Gravity 1.027 (1.001-1.035); Urine Squamous Epithelial Cell FEW /hpf (<5); Urine Urobilinogen Normal (Negative); Urine WBC < 1 /HPF (0-3)
--- NOTE | 2025-03-18 11:02 | DVH ---
CHEST RADIOGRAPH Indication: abdominal pain Technique: Single frontal view of the chest was obtained COMPARISON: None FINDINGS: Lines and Tubes: None Lungs: Clear Pleura: No effusion. No pneumothorax. Cardiomediastinal contours: Descending thoracic aorta ectasia unchanged Bones: Unremarkable IMPRESSION: No acute disease.
[2025-03-18 11:03] LABS: Potassium 3.7 mmol/L (3.5-5.1); Sodium 143 mmol/L (136-145)
[2025-03-18 11:04] LABS: Anion Gap 9 (5-15); Carbon Dioxide 26 mmol/L (20-31)
[2025-03-18 11:05] LABS: Calcium 9.9 mg/dL (8.7-10.4)
[2025-03-18 11:09] LABS: BUN/Creatinine Ratio 19.8 (10.0-20.0); Blood Urea Nitrogen 18 mg/dL (9-23); Glucose 99 mg/dL (74-106)
[2025-03-18 11:10] LABS: Chloride 108 mmol/L (98-107)
[2025-03-18 11:12] LABS: Basophils # (auto) 0.1 10 ^3/uL (0-0.2); Basophils % (auto) 1.1 % (0.0-2.0); Eosinophils # (auto) 0.1 10 ^3/uL (0-0.8); Eosinophils % (auto) 0.9 % (0.0-7.0); Hematocrit 32.4 % (41.0-53.0); Hemoglobin 11.1 g/dL (13.5-17.5); Lymphocytes # (auto) 1.2 10 ^3/uL (0.4-5.4); Lymphocytes % (auto) 20.9 % (10.0-50.0); Mean Corpuscular Hemoglobin 29.8 pg (28.0-32.0); Mean Corpuscular Hgb Conc. 34.1 g/dL (32.0-36.0); Mean Corpuscular Volume 87.5 fL (80.0-100.0); Monocytes # (auto) 0.5 10 ^3/uL (0-1.3); Monocytes % (auto) 8.1 % (0.0-12.0); Nucleated Red Blood Cells % 0.1 %; Platelet Count (auto) 209 10^3/uL (140-450); Red Blood Cells 3.71 10^6/uL (4.5-5.90); Red Cell Distribution Width 14.2 % (11.8-14.3); White Blood Cell 5.8 10^3/uL (4.4-10.8)
[2025-03-18] MEDS: IOHEXOL 300 MG/ML 100ML BOTTLE IJ ONE (11:26)
[2025-03-18] MEDS: hydrALAZINE HCL 20 MG/ML VL IV ONE (11:30)
--- NOTE | 2025-03-18 12:43 | DVH ---
Indication: abdominal pain Technique: CT axial images of the chest, abdomen and pelvis are obtained with intravenous contrast. Coronal and sagittal reformats were obtained. Radiation Dose Information: CTDI volume is 11.27 mGy. Dose-length product is 814.07 mGy*cm Comparison: None FINDINGS: Trachea patent. No pneumothorax. Bilateral atelectasis. No pulmonary airspace consolidation. The heart is normal in size. Coronary artery calcification disease. 13 mm pretracheal lymph node. S ubcarinal lymph node measuring 13 mm. No supraclavicular or axillary lymphadenopathy. Adrenal glands, spleen, pancreas unremarkable. No enhancing hepatic lesion. No CT evidence for cholel ithiasis. Kidneys demonstrate no hydronephrosis. Left renal cysts measuring up to 2.1 cm. Stomach partially distended. Small bowel loops are normal in caliber. Colonic diverticular disease. Ventral wall hernia containing transverse colon measuring 11.2 x 6.2 cm . The neck of the hernia measures 3.2 cm. Normal appendix. There is a right lateral ventral wall hernia containing fat measuring 6 x 8 cm. Right lateral abdominal wall hernia containing fat measuring 5.9 x 7.9 cm. Abdominal aortic atherosclerotic disease. Bladder is partially distended. No free pelvic fluid. No i nguinal lymphadenopathy. Prostate measures 5 cm transversely. There is no aggressive osseous process. [id number] thoracolumbar degenerative disc disease. IMPRESSION: Ventral wall hernia containing transverse colon measuring 11.2 x 6.2 cm. No evidence for bowel obstru ction. Right lateral ventral wall hernia containing fat measuring 6 x 8 cm. Colonic diverticular disease. Atherosclerotic, coronary artery calcification disease. Prostatomegaly. Correlate with PSA levels. Other findings as described.
[2025-03-18] MEDS ORDERED: ONDANSETRON HCL 4 MG/2 ML VIAL IV PRN (16:00)
[2025-03-18] MEDS ORDERED: NITROGLYCERIN 0.4 MG SL TAB SL PRN (16:00)
[2025-03-18] MEDS ORDERED: MORPHINE SULFATE INJ 2 MG/ml SYRG IV PRN (16:00)
[2025-03-18] MEDS ORDERED: DOCUSATE SOD 100 MG CAP PO PRN (16:00)
[2025-03-18] MEDS ORDERED: HYDROcodone-ACET 5/325MG TAB PO PRN (16:00)
[2025-03-18] MEDS ORDERED: ACETAMINOPHEN 325 MG TAB PO PRN (16:00)
[2025-03-18] MEDS: LOSARTAN POTASSIUM 50 MG TAB PO ONE (16:21)
--- NOTE | 2025-03-18 17:06 | DVHHP2 ---
History of Present Illness Reason for Visit: Bleeding from rectum History of Present Illness Jose Miguel Rodriguez is a 69-year-old male with past medical history of hypertension and hyperlipidemia, who has not been on any medications for over a year. He came to the hospital for bleeding from his rectum. He states he does not have diarrhea, or bleeding with a bowel movement, that the blood is just coming out. He states this has been going on for about 10 days. He did have a small, normal, bowel movement a couple days ago, then continued to bleed. While in the ER his blood pressure was in the 190-200's. IV hydralazine was given and brought his BP down to the 150's. Patient will be admitted to [facility]. Cardiovascular: HTN, hyperipidemia Past Surgical History: Hernia Repair, Other (Prostate surgery ) Smoke: No ALCOHOL: none Drugs: None Lives: with Family Domestic Violence: Neg Review of Systems Constitutional: No: Fever, Chills, Sweats, Weakness, Malaise, Other Eyes: No: Pain, Vision change, Conjunctivae inflammation, Eyelid inflammation, Other, Redness ENT: No: Ear pain, Ear discharge, Nose pain, Nose discharge, Nose congestion, Mouth pain, Mouth swelling, Throat pain, Throat swelling, Other Respiratory: No: Cough, Dry, Shortness of breath, SOB with excertion, Wheezing, Hemoptysis, Pleuritic Pain, Sputum, Wheezing, Other Cardiovascular: Other (elevated blood pressure); No: Chest Pain, Palpitations, Orthopnea, Paroxysmal Noc. Dyspnea, Edema, Lt Headedness Gastrointestinal: Abdominal Pain (lLQ), Other (bleeding from rectum); No: Nausea, Vomiting, Diarrhea, Constipation, Melena, Hematochezia Genitourinary: No Dysuria, No Frequency, No Incontinence, No Hematuria, No Retention, No Other Musculoskeletal: No: other, neck pain, shoulder pain, arm pain, back pain, hand pain, leg pain, foot pain Skin: No: Rash, Lesions, Jaundice, Bruising, Other Neurological: No: Weakness, Numbness, Incoordination, Change in speech, Confusion, Seizures, Other Allergies: Coded Allergies: NO KNOWN ALLERGIES (Unverified , 06/24/22) Medications Current Medications Medications Dose Ordered Sig/Zamzam Route Start Time Stop Time Status Last Admin Dose Admin Sodium Chloride 10 ml Q8HR IV 6/16/25 22:00 UNV Acetaminophen/ Hydrocodone Bitart 1 tab Q4HP PRN PO 03/18/25 16:00 UNV Ondansetron HCl 4 mg Q4HP PRN IV 03/18/25 16:00 UNV Docusate Sodium 100 mg BIDPRN PRN PO 03/18/25 16:00 UNV Acetaminophen 650 mg Q6HP PRN PO 03/18/25 16:00 UNV Nitroglycerin 0.4 mg Q5MINP PRN SL 03/18/25 16:00 UNV Morphine Sulfate 2 mg Q30M PRN IV 03/18/25 16:00 UNV Hydralazine HCl 10 mg Q6HP PRN IV 03/18/25 16:00 UNV Atorvastatin Calcium 20 mg HS PO 03/18/25 22:00 UNV Losartan Potassium 50 mg DAILY PO 03/19/25 10:00 UNV Tamsulosin HCl 0.4 mg QPM PO 03/18/25 18:00 UNV Exam Vital Signs Vital Signs Date Time Temp Pulse Resp B/P (MAP) Pulse Ox O2 Delivery O2 Flow Rate FiO2 03/18/25 15:26 90 18 157/95 (115) 98 03/18/25 10:57 98.2 98.2 03/18/25 10:57 Room Air General Appearance: Alert, Oriented X3, Cooperative, mild distress HEENT: Atraumatic, PERRLA Respiratory: Clear to auscultation, Normal air movement Cardiovascular: Regular rate, Normal S1, Normal S2, No murmurs Abdominal: Normal bowel sounds Extremities: No clubbing, No cyanosis, No edema, Normal pulses, No tenderness/swelling Skin: No rashes, No breakdown, No significant lesion Neuro: Normal gait, Normal speech, Strength at 5/5 X4 ext Psych/Mental Status: Mental status NL, Mood NL Labs/Xrays Labs Test 03/18/25 10:26 03/18/25 09:56 Range/Units White Blood Count 5.8 4.4-10.8 10^3/uL Red Blood Count 3.71 L 4.5-5.90 10^6/uL Hemoglobin 11.1 L 13.5-17.5 g/dL Hematocrit 32.4 L 41.0-53.0 % Mean Corpuscular Volume 87.5 80.0-100.0 fL Mean Corpuscular Hemoglobin 29.8 28.0-32.0 pg Mean Corpuscular Hemoglobin Concent 34.1 32.0-36.0 g/dL Red Cell Distribution Width 14.2 11.8-14.3 % Platelet Count 209 140-450 10^3/uL Mean Platelet Volume 9.6 6.9-10.8 fL Neutrophils (%) (Auto) 69.0 37.0-80.0 % Lymphocytes (%) (Auto) 20.9 10.0-50.0 % Monocytes (%) (Auto) 8.1 0.0-12.0 % Eosinophils (%) (Auto) 0.9 0.0-7.0 % Basophils (%) (Auto) 1.1 0.0-2.0 % Neutrophils # (Auto) 4.0 1.6-8.6 10 ^3/uL Lymphocytes # (Auto) 1.2 0.4-5.4 10 ^3/uL Monocytes # (Auto) 0.5 0-1.3 10 ^3/uL Eosinophils # (Auto) 0.1 0-0.8 10 ^3/uL Basophils # (Auto) 0.1 0-0.2 10 ^3/uL Nucleated Red Blood Cells 0.1 % Sodium Level 143 136-145 mmol/L Potassium Level 3.7 3.5-5.1 mmol/L Chloride Level 108 H 98-107 mmol/L Carbon Dioxide Level 26 20-31 mmol/L Anion Gap 9 5-15 Blood Urea Nitrogen 18 9-23 mg/dL Creatinine 0.91 0.700-1.30 mg/dL Glomerular Filtration Rate Calc 91 >90 mL/min BUN/Creatinine Ratio 19.8 10.0-20.0 Serum Glucose 99 74-106 mg/dL Calcium Level 9.9 8.7-10.4 mg/dL Urine Color Yellow Yellow Urine Clarity Clear Clear Urine pH 5.0 5.0-9.0 Urine Specific [place] 1.027 1.001-1.035 Urine Protein Negative Negative Urine Ketones Negative Negative Urine Blood Negative Negative /uL Urine Nitrite Negative Negative Urine Bilirubin Negative Negative Urine Urobilinogen Normal Negative mg/dL Urine Leukocyte Esterase Negative Negative /uL Urine RBC 1 0 - 3 /hpf Urine Microscopic WBC < 1 0-3 /HPF Urine Squamous Epithelial Cells Few <5 /hpf Urine Bacteria None seen None Seen /hpf Urine Mucus Few None Seen Urine Glucose Normal Normal mg/dL Technique: CT axial images of the chest, abdomen and pelvis are obtained with intravenous contrast. FINDINGS: Trachea patent. No pneumothorax. Bilateral atelectasis. No pulmonary airspace consolidation. The heart is normal in size. Coronary artery calcification disease. 13 mm pretracheal lymph node. Subcarinal lymph node measuring 13 mm. No supraclavicular or axillary lymphadenopathy. Adrenal glands, spleen, pancreas unremarkable. No enhancing hepatic lesion. No CT evidence for cholelithiasis. Kidneys demonstrate no hydronephrosis. Left renal cysts measuring up to 2.1 cm. Stomach partially distended. Small bowel loops are normal in caliber. Colonic diverticular disease. Ventral wall hernia containing transverse colon measuring 11.2 x 6.2 cm. The neck of the hernia measures 3.2 cm. Normal appendix. There is a right lateral ventral wall hernia containing fat measuring 6 x 8 cm. Right lateral abdominal wall hernia containing fat measuring 5.9 x 7.9 cm. Abdominal aortic atherosclerotic disease. Bladder is partially distended. No free pelvic fluid. No inguinal lymphadenopathy. Prostate measures 5 cm transversely. There is no aggressive osseous process. [id number] thoracolumbar deg enerative disc disease. IMPRESSION: Ventral wall hernia containing transverse colon measuring 11.2 x 6.2 cm. No evidence for bowel obstruction. Right lateral ventral wall hernia containing fat measuring 6 x 8 cm. Colonic diverticular disease. Atherosclerotic, coronary artery calcification disease. Prostatomegaly. Correlate with PSA levels. Other findings as described. CHEST RADIOGRAPH FINDINGS: Lines and Tubes: None Lungs: Clear Pleura: No effusion. No pneumothorax. Cardiomediastinal contours: Descending thoracic aorta ectasia unchanged Bones: Unremarkable IMPRESSION: No acute disease. Assessment/Plan Assessment/Plan Assessment: Hypertensive emergency, GI bleed, Diverticulitis, Hernia, Hyperlipidemia, Plan: Admit to Tele, GI consult, Antihypertensives, PRN Antihypertensives, Clear liquid diet, Home medications reconciled, Plan discussed with: Patient My Orders Orders - PIYUSH VALERIO [employer]PER[employer] Procedure Category Date Status Time Admit ADMIT 03/18/25 Transmitted 15:55 Code Status CODE 03/18/25 Transmitted 15:55 Sodium Chloride Lock PHA 03/18/25 Logged (Saline Lock Ns) 22:00 Hydrocodone-Acet PHA 03/18/25 Logged 5/325mg Tab ([place] 16:00 Ondansetron Hcl PHA 03/18/25 Logged (Zofran) 16:00 Docusate Sodium PHA 03/18/25 Logged Capsule (Colace 16:00 Complete Blood Count LAB 03/19/25 Verified 04:00 Comprehensive LAB 03/19/25 Verified Metabolic Panel 04:00 Condition: Serious BILLY 03/18/25 In Process 15:55 Acetaminophen Tablet PHA 03/18/25 Logged (Tylenol Tablet) 16:00 Clear Liq Diet DIET 03/18/25 Transmitted Dinner Nitroglycerin PHA 03/18/25 Logged Sublingual (Ntrostat 16:00 Morphine Sulfate PHA 03/18/25 Logged Injection 16:00 Stat Ekg For Chest BILLY 03/18/25 In Process Pain 15:55 Notify Of Changes [facility] 03/18/25 In Process From Base 15:55 [employer] Rep[employer]r For [facility] 03/18/25 In Process 24 Hours 15:55 Emergency Dysrhythmia [facility] 03/18/25 In Process Protocol 15:55 Rhythm Strips Once [facility] 03/18/25 In Process Every Shift 15:55 Oxygen By Nasal RT 03/18/25 Transmitted Cannula 15:55 Losartan Tablet PHA 03/18/25 Logged (Cozaar Tablet) 16:00 Hydralazine Injection PHA 03/18/25 Logged (Apresoline Inject 16:00 Atorvastatin (Lipitor) PHA 03/18/25 Logged 22:00 Losartan Tablet PHA 03/19/25 Logged (Cozaar Tablet) 10:00 Tamsulosin PHA 03/18/25 Logged Hydrochloride (Flomax) 18:00 * Gi Dvh Smelter Operator CONS 03/18/25 Transmitted 15:59 Date of Service: Mar 18, 2025 Billing Provider: PIYUSH VALERIO Common Visit Codes: [id number] INP/OBS CARE (MOD) PIYUSH VALERIO Mar 18, 2025 17:06
[2025-03-18] MEDS: TAMSULOSIN HYDROCHLORIDE 0.4 MG CAP PO SCH (19:47)
[2025-03-18 20:15] VITALS: BP 154/89; PULSE 72; RESP 18; TEMP 98; O2SAT 96
[2025-03-18] MEDS: SODIUM CHLOR 0.9% PF (SALINE LOCK) 10ML VIAL/SYR IV SCH (20:50)
[2025-03-18] MEDS: ATORVASTATIN 20 MG TAB PO SCH (20:50)
[2025-03-18 23:45] VITALS: BP 143/88; PULSE 64; RESP 16; TEMP 97.6; O2SAT 99
[2025-03-19] VITALS (8 sets, daily range): BP systolic 122–163; BP diastolic 73–97; PULSE 63–88; RESP 16–18; TEMP 97.8–98.8; O2SAT 96–99
[2025-03-19 07:55] LABS: Basophils # (auto) 0 10 ^3/uL (0-0.2); Basophils % (auto) 0.8 % (0.0-2.0); Eosinophils # (auto) 0.1 10 ^3/uL (0-0.8); Eosinophils % (auto) 1.9 % (0.0-7.0); Hematocrit 29.4 % (41.0-53.0); Hemoglobin 10.1 g/dL (13.5-17.5); Lymphocytes # (auto) 1.1 10 ^3/uL (0.4-5.4); Lymphocytes % (auto) 17.8 % (10.0-50.0); Mean Corpuscular Hemoglobin 29.9 pg (28.0-32.0); Mean Corpuscular Hgb Conc. 34.3 g/dL (32.0-36.0); Mean Corpuscular Volume 87.1 fL (80.0-100.0); Monocytes # (auto) 0.6 10 ^3/uL (0-1.3); Monocytes % (auto) 9.2 % (0.0-12.0); Neutrophils # (auto) 4.2 10 ^3/uL (1.6-8.6); Neutrophils % (auto) 70.3 % (37.0-80.0); Nucleated Red Blood Cells % 0.1 %; Platelet Count (auto) 198 10^3/uL (140-450); Red Blood Cells 3.38 10^6/uL (4.5-5.90); Red Cell Distribution Width 14.7 % (11.8-14.3)
[2025-03-19 08:16] LABS: Alkaline Phosphatase 67 U/L (46-116); Anion Gap 8 (5-15); Aspartate Aminotransferase 14 U/L (<34); BUN/Creatinine Ratio 17.1 (10.0-20.0); Blood Urea Nitrogen 14 mg/dL (9-23); Calcium 9.5 mg/dL (8.7-10.4); Carbon Dioxide 26 mmol/L (20-31); Glucose 96 mg/dL (74-106); Potassium 4.1 mmol/L (3.5-5.1); Sodium 142 mmol/L (136-145)
[2025-03-19 08:20] LABS: Alanine Aminotransferase < 9 U/L (7-40); Bilirubin, Total 1.6 mg/dL (0.2-1.0); Chloride 108 mmol/L (98-107)
[2025-03-19] MEDS: LOSARTAN POTASSIUM 50 MG TAB PO SCH (11:52)
--- NOTE | 2025-03-19 12:35 | DVHPN2 ---
Subjective 69-year-old male with a history of hypertension hyperlipidemia who has not been taking medications at home comes here with a chief complaint of rectal bleeding for 10 days, I describes it as a red blood but with some dark blood sometimes No abdominal pain No hematemesis No nausea or vomiting He is not on any home medications Changes from previous H/P or p: Changes Eyes: No Pain, No Vision change, No Conjunctivae inflammation, No Eyelid inflammation, No Other, No Redness ENT: No Ear pain, No Ear discharge, No Nose pain, No Nose discharge, No Nose congestion, No Mouth pain, No Mouth swelling, No Throat pain, No Throat swelling, No Other Cardiovascular: No Chest Pain, No Palpitations, No Orthopnea, No Paroxysmal Noc. Dyspnea, No Edema, No Lt Headedness; Other (elevated blood pressure) Respiratory: No Cough, No Dry, No Shortness of breath, No SOB with excertion, No Wheezing, No Hemoptysis, No Pleuritic Pain, No Sputum, No Other Gastrointestinal: No Nausea, No Vomiting; Abdominal Pain (lLQ); No Diarrhea, No Constipation, No Melena, No Hematochezia; Other (bleeding from rectum) Genitourinary: No Dysuria, No Frequency, No Incontinence, No Hematuria, No Retention, No Other Musculoskeletal: No other, No neck pain, No shoulder pain, No arm pain, No back pain, No hand pain, No leg pain, No foot pain Skin: No Rash, No Lesions, No Jaundice, No Bruising, No Other Objective Vitals Vital Signs Date Time Temp Pulse Resp B/P (MAP) Pulse Ox O2 Delivery O2 Flow Rate FiO2 03/19/25 11:52 163/97 03/19/25 09:01 97.9 73 17 96 97.9 03/19/25 08:00 Room Air* 0 21 Intake/Output Intake and Output 03/19/25 07:00 Intake Total 0 ml Balance 0 ml Intake Oral 0 ml # Voids 1 General Appearance: Alert, Oriented X3, Cooperative, No acute distress Lungs: Clear to auscultation Cardiovascular: Regular rate, Normal S1 Abdomen: Normal bowel sounds, Soft, No tenderness Extremities: No edema Medications Current Medications Medications Dose Ordered Sig/Zamzam Route Start Time Stop Time Status Last Admin Dose Admin Sodium Chloride 10 ml Q8HR IV 03/18/25 22:00 03/19/25 06:16 10 ML Acetaminophen/ Hydrocodone Bitart 1 tab Q4HP PRN PO 03/18/25 16:00 Ondansetron HCl 4 mg Q4HP PRN IV 03/18/25 16:00 Docusate Sodium 100 mg BIDPRN PRN PO 03/18/25 16:00 Acetaminophen 650 mg Q6HP PRN PO 03/18/25 16:00 Nitroglycerin 0.4 mg Q5MINP PRN SL 03/18/25 16:00 Morphine Sulfate 2 mg Q30M PRN IV 03/18/25 16:00 Hydralazine HCl 10 mg Q6HP PRN IV 03/18/25 16:00 Atorvastatin Calcium 20 mg HS PO 03/18/25 22:00 03/18/25 20:50 20 MG Losartan Potassium 50 mg DAILY PO 03/19/25 10:00 03/19/25 11:52 50 MG Tamsulosin HCl 0.4 mg QPM PO 03/18/25 18:00 03/18/25 19:47 0.4 MG Laboratory Results Laboratory Tests 03/19/25 07:30 Chemistry Test 03/19/25 07:30 Albumin 4.0 g/dL (3.2-4.8) Calcium Level 9.5 mg/dL (8.7-10.4) Total Protein 6.0 g/dL (5.7-8.2) LFT Test 03/19/25 07:30 Alanine Aminotransferase (ALT) < 9 U/L (7-40) Alkaline Phosphatase 67 U/L (46-116) Aspartate Amino Transferase (AST) 14 U/L (<34) Total Bilirubin 1.6 mg/dL (0.2-1.0) H Urinalysis Test 03/18/25 09:56 Urine Color Yellow (Yellow) Urine Clarity Clear (Clear) Urine pH 5.0 (5.0-9.0) Urine Specific [place] 1.027 (1.001-1.035) Urine Protein Negative (Negative) Urine Ketones Negative (Negative) Urine Blood Negative /uL (Negative) Urine Nitrite Negative (Negative) Urine Bilirubin Negative (Negative) Urine Urobilinogen Normal mg/dL (Negative) Urine Leukocyte Esterase Negative /uL (Negative) Urine RBC 1 /hpf (0 - 3) Urine Microscopic WBC < 1 /HPF (0-3) Urine Squamous Epithelial Cells Few /hpf (<5) Urine Bacteria None seen /hpf (None Seen) Urine Mucus Few (None Seen) Urine Glucose Normal mg/dL (Normal) Assessment/Plan Assessment/Plan Rectal bleeding Hypertensive urgency Uncontrolled hypertension Mixed hyperlipidemia Plan GI consult Clear liquid diet Hydralazine p.r.n. Losartan 50 mg daily IV Protonix Full code Advance directives discussed for 20 minutes Plan discussed with: Patient Date of Service: Mar 19, 2025 Billing Provider: HAROLDO HARRIS MD Common Visit Codes: [id number] INP/OBS CARE(HIGH) Secondary Visit Codes: [id number] CARE PLAN 30 MINUTES HAROLDO HARRIS MD Mar 19, 2025 12:35
[2025-03-19] MEDS: PANTOPRAZOLE 40 MG/10 ML VIAL INJ IV ONE (13:23)
[2025-03-19] MEDS: GOLYTELY 4L KIT PO ONE (13:24)
--- NOTE | 2025-03-19 13:34 | DVHINCON2 ---
GI Consult Consult Note GI consult note Date of Consultation: 03/19/2025 Chief Complaint: GI bleed/diverticulitis Referring Physician: Shiela SANDHU H&P: 69-year-old male presented to ER with rectal bleeding, started 10 days ago, having 2-3 episodes every day. Denies abdominal pain. Denies rectal pain. No history of hemorrhoids. No nausea vomiting. Patient admits to weight loss of 10 lb in the last 10 days. Last colonoscopy 20 years ago, unsure about results. Denies blood thinners Past Medical History: HTN, hyperlipidemia Past Surgical History: Hernia repair, prostate Social History: NO smoking, drinking ETOH and use of illegal drugs. Family History: Noncontributory Review of Systems: Constitutional: no fever, chill, weight loss HEENT: no eye pain, no hearing loss, no oral lesion, no scleral icterus Heart: no chest pain, no chest pressure Lung: no cough, no dyspnea with exertion Abdomen: see HPI Physical exam: General: NAD, AAOX3 Chest: lung castellano clear to auscultation Heart: RRR, no murmur Abdomen: non-distended, no tenderness to palpation, +BS Labs: Labs Test 03/19/25 07:30 03/18/25 09:56 Range/Units White Blood Count 6.0 4.4-10.8 10^3/uL Red Blood Count 3.38 L 4.5-5.90 10^6/uL Hemoglobin 10.1 L 13.5-17.5 g/dL Hematocrit 29.4 L 41.0-53.0 % Mean Corpuscular Volume 87.1 80.0-100.0 fL Mean Corpuscular Hemoglobin 29.9 28.0-32.0 pg Mean Corpuscular Hemoglobin Concent 34.3 32.0-36.0 g/dL Red Cell Distribution Width 14.7 H 11.8-14.3 % Platelet Count 198 140-450 10^3/uL Mean Platelet Volume 9.3 6.9-10.8 fL Neutrophils (%) (Auto) 70.3 37.0-80.0 % Lymphocytes (%) (Auto) 17.8 10.0-50.0 % Monocytes (%) (Auto) 9.2 0.0-12.0 % Eosinophils (%) (Auto) 1.9 0.0-7.0 % Basophils (%) (Auto) 0.8 0.0-2.0 % Neutrophils # (Auto) 4.2 1.6-8.6 10 ^3/uL Lymphocytes # (Auto) 1.1 0.4-5.4 10 ^3/uL Monocytes # (Auto) 0.6 0-1.3 10 ^3/uL Eosinophils # (Auto) 0.1 0-0.8 10 ^3/uL Basophils # (Auto) 0 0-0.2 10 ^3/uL Nucleated Red Blood Cells 0.1 % Sodium Level 142 136-145 mmol/L Potassium Level 4.1 3.5-5.1 mmol/L Chloride Level 108 H 98-107 mmol/L Carbon Dioxide Level 26 20-31 mmol/L Anion Gap 8 5-15 Blood Urea Nitrogen 14 9-23 mg/dL Creatinine 0.82 0.700-1.30 mg/dL Glomerular Filtration Rate Calc 95 >90 mL/min BUN/Creatinine Ratio 17.1 10.0-20.0 Serum Glucose 96 74-106 mg/dL Calcium Level 9.5 8.7-10.4 mg/dL Total Bilirubin 1.6 H 0.2-1.0 mg/dL Aspartate Amino Transferase (AST) 14 <34 U/L Alanine Aminotransferase (ALT) < 9 7-40 U/L Alkaline Phosphatase 67 46-116 U/L Total Protein 6.0 5.7-8.2 g/dL Albumin 4.0 3.2-4.8 g/dL Urine Color Yellow Yellow Urine Clarity Clear Clear Urine pH 5.0 5.0-9.0 Urine Specific [place] 1.027 1.001-1.035 Urine Protein Negative Negative Urine Ketones Negative Negative Urine Blood Negative Negative /uL Urine Nitrite Negative Negative Urine Bilirubin Negative Negative Urine Urobilinogen Normal Negative mg/dL Urine Leukocyte Esterase Negative Negative /uL Urine RBC 1 0 - 3 /hpf Urine Microscopic WBC < 1 0-3 /HPF Urine Squamous Epithelial Cells Few <5 /hpf Urine Bacteria None seen None Seen /hpf Urine Mucus Few None Seen Urine Glucose Normal Normal mg/dL Imaging: CT chest abdomen and pelvis IMPRESSION: Ventral wall hernia containing transverse colon measuring 11.2 x 6.2 cm. No evidence for bowel obstruction. Right lateral ventral wall hernia containing fat measuring 6 x 8 cm. Colonic diverticular disease. Atherosclerotic, coronary artery calcification disease. Prostatomegaly. Correlate with PSA levels. Other findings as described. Assessment: Rectal bleeding Colonic diverticular disease Plan: Discussed with Dr. Cano - Pt will be scheduled for colonoscopy tomorrow 03/20/2025. Pt was informed of the risks (bleeding, infection, perforation, reaction to sedation medications and cardiopulmonary arrest) and benefit and is agreeable to undergo the procedures. Monitor lab NPO after midnight Discussed plan with patient and RN Thank you for this consult Date of Service: Mar 19, 2025 Billing Provider: YOBANI SALAS Common Visit Codes: CONSULT ONLY Consultation Codes: [id number] CONSULT <60MIN YOBANI SALAS Mar 19, 2025 13:34
[2025-03-19 14:55] LABS: INR 1.04 (0.9-1.15)
[2025-03-20] VITALS (9 sets, daily range): BP systolic 137–168; BP diastolic 72–111; PULSE 62–100; RESP 16–21; TEMP 75.4–98.1; O2SAT 92–100
[2025-03-20] MEDS: MAGNESIUM CITRATE SOLUTION 300 ML BTL PO ONE (05:23)
[2025-03-20] MEDS: GOLYTELY 4L KIT PO ONE (05:24)
[2025-03-20 06:03] LABS: Basophils # (auto) 0.1 10 ^3/uL (0-0.2); Basophils % (auto) 1.1 % (0.0-2.0); Eosinophils # (auto) 0.1 10 ^3/uL (0-0.8); Eosinophils % (auto) 2.1 % (0.0-7.0); Hematocrit 30.6 % (41.0-53.0); Hemoglobin 10.3 g/dL (13.5-17.5); Lymphocytes # (auto) 1.2 10 ^3/uL (0.4-5.4); Lymphocytes % (auto) 25.1 % (10.0-50.0); Mean Corpuscular Hemoglobin 29.4 pg (28.0-32.0); Mean Corpuscular Hgb Conc. 33.7 g/dL (32.0-36.0); Mean Corpuscular Volume 87.2 fL (80.0-100.0); Monocytes # (auto) 0.5 10 ^3/uL (0-1.3); Monocytes % (auto) 10.6 % (0.0-12.0); Neutrophils % (auto) 61.1 % (37.0-80.0); Nucleated Red Blood Cells % 0.1 %; Platelet Count (auto) 208 10^3/uL (140-450); Red Blood Cells 3.51 10^6/uL (4.5-5.90); Red Cell Distribution Width 14.3 % (11.8-14.3); White Blood Cell 4.9 10^3/uL (4.4-10.8)
[2025-03-20 06:26] LABS: Alanine Aminotransferase 10 U/L (7-40); Albumin 3.9 g/dL (3.2-4.8); Alkaline Phosphatase 71 U/L (46-116); Anion Gap 10 (5-15); Aspartate Aminotransferase 18 U/L (<34); Blood Urea Nitrogen 9 mg/dL (9-23); Calcium 8.6 mg/dL (8.7-10.4); Carbon Dioxide 26 mmol/L (20-31); Chloride 106 mmol/L (98-107); Glucose 93 mg/dL (74-106); Magnesium 2.3 mg/dL (1.6-2.6); Potassium 3.8 mmol/L (3.5-5.1); Sodium 142 mmol/L (136-145); Total Protein 6.1 g/dL (5.7-8.2)
[2025-03-20 06:27] LABS: Bilirubin, Total 1.4 mg/dL (0.2-1.0)
[2025-03-20] MEDS: PANTOPRAZOLE 40 MG/10 ML VIAL INJ IV SCH (08:33)
--- NOTE | 2025-03-20 10:25 | DVHPN2 ---
Subjective No active bleeding No abdominal pain He is undergoing bowel preparation for colonoscopy today Changes from previous H/P or p: Changes Eyes: No Pain, No Vision change, No Conjunctivae inflammation, No Eyelid inflammation, No Other, No Redness ENT: No Ear pain, No Ear discharge, No Nose pain, No Nose discharge, No Nose congestion, No Mouth pain, No Mouth swelling, No Throat pain, No Throat swelling, No Other Cardiovascular: No Chest Pain, No Palpitations, No Orthopnea, No Paroxysmal Noc. Dyspnea, No Edema, No Lt Headedness; Other (elevated blood pressure) Respiratory: No Cough, No Dry, No Shortness of breath, No SOB with excertion, No Wheezing, No Hemoptysis, No Pleuritic Pain, No Sputum, No Other Gastrointestinal: No Nausea, No Vomiting; Abdominal Pain (lLQ); No Diarrhea, No Constipation, No Melena, No Hematochezia; Other (bleeding from rectum) Genitourinary: No Dysuria, No Frequency, No Incontinence, No Hematuria, No Retention, No Other Musculoskeletal: No other, No neck pain, No shoulder pain, No arm pain, No back pain, No hand pain, No leg pain, No foot pain Skin: No Rash, No Lesions, No Jaundice, No Bruising, No Other Objective Vitals Vital Signs Date Time Temp Pulse Resp B/P (MAP) Pulse Ox O2 Delivery O2 Flow Rate FiO2 03/20/25 09:00 97.6 75 17 168/111 (130) 100 97.6 03/20/25 08:00 Room Air* 0 21 Intake/Output Intake and Output 03/20/25 07:00 Intake Total 1438 ml Balance 1438 ml Intake Oral 1438 ml # Voids 5 # Bowel Movements 1 General Appearance: Alert, Oriented X3, Cooperative, No acute distress Lungs: Clear to auscultation Cardiovascular: Regular rate, Normal S1 Abdomen: Normal bowel sounds, Soft, No tenderness Extremities: No edema Medications Current Medications Medications Dose Ordered Sig/Zamzam Route Start Time Stop Time Status Last Admin Dose Admin Sodium Chloride 10 ml Q8HR IV 03/18/25 22:00 03/20/25 05:24 10 ML Acetaminophen/ Hydrocodone Bitart 1 tab Q4HP PRN PO 03/18/25 16:00 Ondansetron HCl 4 mg Q4HP PRN IV 03/18/25 16:00 Docusate Sodium 100 mg BIDPRN PRN PO 03/18/25 16:00 Acetaminophen 650 mg Q6HP PRN PO 03/18/25 16:00 Nitroglycerin 0.4 mg Q5MINP PRN SL 03/18/25 16:00 Morphine Sulfate 2 mg Q30M PRN IV 03/18/25 16:00 Hydralazine HCl 10 mg Q6HP PRN IV 03/18/25 16:00 Atorvastatin Calcium 20 mg HS PO 03/18/25 22:00 03/19/25 22:03 20 MG Losartan Potassium 50 mg DAILY PO 03/19/25 10:00 03/20/25 08:33 50 MG Tamsulosin HCl 0.4 mg QPM PO 03/18/25 18:00 03/19/25 18:26 0.4 MG Pantoprazole Sodium 40 mg DAILY IV 03/20/25 10:00 03/20/25 08:33 40 MG Laboratory Results Laboratory Tests 03/20/25 05:39 Chemistry Test 03/20/25 05:39 Albumin 3.9 g/dL (3.2-4.8) Calcium Level 8.6 mg/dL (8.7-10.4) L Magnesium Level 2.3 mg/dL (1.6-2.6) Total Protein 6.1 g/dL (5.7-8.2) Coagulation Test 03/19/25 14:08 Prothrombin Time 11.0 sec (9.3-11.8) Prothrombin Time INR 1.04 (0.9-1.15) LFT Test 03/20/25 05:39 Alanine Aminotransferase (ALT) 10 U/L (7-40) Alkaline Phosphatase 71 U/L (46-116) Aspartate Amino Transferase (AST) 18 U/L (<34) Total Bilirubin 1.4 mg/dL (0.2-1.0) H Urinalysis Test 03/18/25 09:56 Urine Color Yellow (Yellow) Urine Clarity Clear (Clear) Urine pH 5.0 (5.0-9.0) Urine Specific [place] 1.027 (1.001-1.035) Urine Protein Negative (Negative) Urine Ketones Negative (Negative) Urine Blood Negative /uL (Negative) Urine Nitrite Negative (Negative) Urine Bilirubin Negative (Negative) Urine Urobilinogen Normal mg/dL (Negative) Urine Leukocyte Esterase Negative /uL (Negative) Urine RBC 1 /hpf (0 - 3) Urine Microscopic WBC < 1 /HPF (0-3) Urine Squamous Epithelial Cells Few /hpf (<5) Urine Bacteria None seen /hpf (None Seen) Urine Mucus Few (None Seen) Urine Glucose Normal mg/dL (Normal) Assessment/Plan Assessment/Plan Rectal bleeding Hypertensive urgency Uncontrolled hypertension Mixed hyperlipidemia Plan GI consult Clear liquid diet Hydralazine p.r.n. Losartan 50 mg daily IV Protonix Full code Advance directives discussed for 20 minutes 03/20/2025: Colonoscopy today No active bleeding Hemoglobin 10.3 Monitor closely Hypertension: Increase losartan to 100 mg daily Plan discussed with: Patient My Orders Orders - HAROLDO HARRIS MD Procedure Category Date Status Time Pantoprazole PHA 03/20/25 In Process (Protonix) 10:00 Date of Service: Mar 20, 2025 Billing Provider: HAROLDO HARRIS MD Common Visit Codes: [id number] INP/OBS CARE(HIGH) HAROLDO HARRIS MD Mar 20, 2025 10:25
[2025-03-20] MEDS ORDERED: KETOROLAC TROMETH 30 MG/ML 1ML VIAL IV ONE (11:00)
[2025-03-20] MEDS ORDERED: METOCLOPRAMIDE HCL 5MG/ml INJ 2ml VIAL IV ONE (11:00)
[2025-03-20] MEDS ORDERED: MORPHINE SULFATE INJ 2 MG/ml SYRG IV PRN (11:00)
[2025-03-20] MEDS ORDERED: MORPHINE SULFATE 4 MG/ML SYR/VIAL IV PRN (11:00)
[2025-03-20] MEDS ORDERED: HYDROmorphone HCL 2 MG/ML VL/or syr IV PRN ×2 (11:00)
[2025-03-20] MEDS: LOSARTAN POTASSIUM 50 MG TAB PO ONE (11:07)
[2025-03-20] MEDS ORDERED: fentaNYL CITRATE 100 MCG/2 ML VL ONE (11:43)
[2025-03-20] MEDS ORDERED: KETAMINE 50mg/ML 1ml syringe ONE (11:43)
[2025-03-20] MEDS ORDERED: MIDAZOLAM HCL 2MG/2ML 2ml VIAL (1mg/ml) ONE (11:43)
[2025-03-20] MEDS ORDERED: ONDANSETRON HCL 4 MG/2 ML VIAL ONE (11:44)
[2025-03-20] MEDS ORDERED: LIDOCAINE 1% INJ PF 5ML AMP ONE (11:44)
[2025-03-20] MEDS ORDERED: SODIUM CHLORIDE LOCK 10 ML ONE (11:44)
[2025-03-20] MEDS ORDERED: PROPOFOL 10 MG/ML 20 ML IV ONE (11:44)
--- NOTE | 2025-03-20 12:22 | DVHOP2 ---
Operative Report DATE OF OPERATION: 03/20/25 PROCEDURE: Colonoscopy with hot snare polypectomy. PREOPERATIVE INDICATION: The patient is a 69 -year-old male undergoing colonoscopy for evaluation of rectal bleeding POSTOPERATIVE DIAGNOSES: 1. Patient had [id number] sigmoid diverticular disease with minimal residual blood-tinged fluid in this area that was aspirated but no active bleeding was seen, likely source of bleeding was the sigmoid diverticular area 2. There was a 1 cm benign-appearing descending colon polyp at about 35 cm above the anal verge which was removed by hot snare polypectomy and the specimens were retrieved 3. 1+ internal hemorrhoids otherwise normal examination up to the mid to proximal transverse colon beyond which the colonoscope could not be advanced because of extensive coiling within a large ventral hernia sac PROCEDURE PERFORMED BY: Maria R Cano M.D. SCOPE: Olympus videocolonoscope. ASA CLASS: 3. PREOPERATIVE MEDICATIONS: Mac Dr. Vero bush PROCEDURE IN DETAIL: After obtaining an informed consent, the patient was placed on left lateral decubitus position. He was then sedated with the above medications. A rectal examination was performed that was normal. The colonoscope was then passed through the anus into the rectosigmoid and through the descending, transverse to the mid to proximal transverse colon beyond which the colonoscope could not be advanced Patient is colon was coiled up within a large supraumbilical ventral hernia with sharp angulations and twisting There was no active bleeding no fresh or old blood in the GI tract. Patient had minimal residual blood-tinged fluid in the rectosigmoid area close to the diverticular disease This appeared to be the likely source of bleeding which was [id number] sigmoid diverticular disease. There was a 1 cm descending colon polyp that was removed by hot snare polypectomy. On retroflexion and straight on view the patient had 1+ internal hemorrhoids. . The colonoscope was then withdrawn. The patient tolerated the procedure well without difficulty. WITHDRAWAL TIME: Not Applicable QUALITY OF THE PREP: [place] Bowel Prep score: Good prep in visualized portion up to the mid transverse colon COMPLICATIONS : None SPECIMENS: Descending colon polyp DISPOSITION: Transfer back to the floor Stable PLAN: 1. Complete colon evaluation with a barium enema study and a repeat attempt at colonoscopy as an outpatient after repair of his ventral hernia 2. Resume clear liquid diet 3. DC aspirin NSAIDs blood thinners 4. Outpatient follow up with me in 4-6 weeks to review results and discuss further management MARIA R CANO MD Mar 20, 2025 12:22
[2025-03-20] MEDS: hydrALAZINE HCL 20 MG/ML VL IV PRN (17:33)
[2025-03-21] VITALS (7 sets, daily range): BP systolic 140–163; BP diastolic 93–99; PULSE 63–89; RESP 17–19; TEMP 97.8–98.3; O2SAT 96–100
[2025-03-21] MEDS: LOSARTAN POTASSIUM 50 MG TAB PO SCH (09:57)
--- NOTE | 2025-03-21 11:41 | DVHPN2 ---
Reviewed: Care Plan, H&P, Labs, Medications, Previous Orders, Radiology Changes from previous H/P or p: No Changes Eyes: No Pain, No Vision change, No Conjunctivae inflammation, No Eyelid inflammation, No Other, No Redness ENT: No Ear pain, No Ear discharge, No Nose pain, No Nose discharge, No Nose congestion, No Mouth pain, No Mouth swelling, No Throat pain, No Throat swelling, No Other Cardiovascular: No Chest Pain, No Palpitations, No Orthopnea, No Paroxysmal Noc. Dyspnea, No Edema, No Lt Headedness; Other (elevated blood pressure) Respiratory: No Cough, No Dry, No Shortness of breath, No SOB with excertion, No Wheezing, No Hemoptysis, No Pleuritic Pain, No Sputum, No Other Gastrointestinal: No Nausea, No Vomiting; Abdominal Pain (lLQ); No Diarrhea, No Constipation, No Melena, No Hematochezia; Other (bleeding from rectum) Genitourinary: No Dysuria, No Frequency, No Incontinence, No Hematuria, No Retention, No Other Musculoskeletal: No other, No neck pain, No shoulder pain, No arm pain, No back pain, No hand pain, No leg pain, No foot pain Skin: No Rash, No Lesions, No Jaundice, No Bruising, No Other Objective Vitals Vital Signs Date Time Temp Pulse Resp B/P (MAP) Pulse Ox O2 Delivery O2 Flow Rate FiO2 03/21/25 09:57 148/94 03/21/25 09:00 98.3 63 18 96 98.3 03/21/25 08:00 Room Air* 0 21 Intake/Output Intake and Output 03/21/25 07:00 Intake Total 368 ml Balance 368 ml Intake Oral 368 ml IV Total 0 ml # Voids 3 General Appearance: Alert, Oriented X3, Cooperative, No acute distress Lungs: Clear to auscultation Cardiovascular: Regular rate, Normal S1 Abdomen: Normal bowel sounds, Soft, No tenderness Extremities: No edema Medications Current Medications Medications Dose Ordered Sig/Zamzam Route Start Time Stop Time Status Last Admin Dose Admin Sodium Chloride 10 ml Q8HR IV 03/18/25 22:00 03/21/25 05:26 10 ML Acetaminophen/ Hydrocodone Bitart 1 tab Q4HP PRN PO 03/18/25 16:00 Ondansetron HCl 4 mg Q4HP PRN IV 03/18/25 16:00 Docusate Sodium 100 mg BIDPRN PRN PO 03/18/25 16:00 Acetaminophen 650 mg Q6HP PRN PO 03/18/25 16:00 Nitroglycerin 0.4 mg Q5MINP PRN SL 03/18/25 16:00 Morphine Sulfate 2 mg Q30M PRN IV 03/18/25 16:00 Hydralazine HCl 10 mg Q6HP PRN IV 03/18/25 16:00 03/20/25 17:33 10 MG Atorvastatin Calcium 20 mg HS PO 03/18/25 22:00 03/20/25 21:20 20 MG Tamsulosin HCl 0.4 mg QPM PO 03/18/25 18:00 03/20/25 17:32 0.4 MG Pantoprazole Sodium 40 mg DAILY IV 03/20/25 10:00 03/21/25 09:57 40 MG Losartan Potassium 100 mg DAILY PO 03/21/25 10:00 03/21/25 09:57 100 MG Laboratory Results Laboratory Tests 03/20/25 05:39 Urinalysis Test 03/18/25 09:56 Urine Color Yellow (Yellow) Urine Clarity Clear (Clear) Urine pH 5.0 (5.0-9.0) Urine Specific [place] 1.027 (1.001-1.035) Urine Protein Negative (Negative) Urine Ketones Negative (Negative) Urine Blood Negative /uL (Negative) Urine Nitrite Negative (Negative) Urine Bilirubin Negative (Negative) Urine Urobilinogen Normal mg/dL (Negative) Urine Leukocyte Esterase Negative /uL (Negative) Urine RBC 1 /hpf (0 - 3) Urine Microscopic WBC < 1 /HPF (0-3) Urine Squamous Epithelial Cells Few /hpf (<5) Urine Bacteria None seen /hpf (None Seen) Urine Mucus Few (None Seen) Urine Glucose Normal mg/dL (Normal) Assessment/Plan Assessment/Plan Rectal bleeding Hypertensive urgency Uncontrolled hypertension Mixed hyperlipidemia Plan GI consult Advance diet to regular diet Hydralazine p.r.n. Losartan 50 mg daily IV Protonix Full code Advance directives discussed for 20 minutes Colonoscopy done. No active bleeding Hemoglobin 10.3 Monitor closely Hypertension: Increase losartan to 100 mg daily Discharge planning. Plan discussed with: Patient Date of Service: Mar 21, 2025 Billing Provider: LOPEZ MACEDO MD Common Visit Codes: [id number] INP/OBS CARE(HIGH) LOPEZ MACEDO MD Mar 21, 2025 11:41
--- NOTE | 2025-03-21 22:55 | DVHPN2 ---
Progress Note - Dictate Date Seen: Mar 21, 2025 Medical Necessity Reason Pt with a Central, PICC or Fol: No Subjective No new complaints Large ventral hernia Incomplete colonoscopy Likely bleeding from sigmoid diverticulosis now resolved vital signs Vital Sign Date Time Temp Pulse Resp B/P (MAP) Pulse Ox O2 Delivery O2 Flow Rate FiO2 03/21/25 20:56 98.1 80 17 156/98 (117) 97 98.1 03/21/25 08:00 Room Air* 0 21 Total Intake and Output 03/20/25 03/20/25 03/21/25 15:00 23:00 07:00 Intake Total 0 ml 250 ml 118 ml Balance 0 ml 250 ml 118 ml medications Current Medications Medications Dose Ordered Sig/Zamzam Route Start Time Stop Time Status Last Admin Dose Admin Sodium Chloride 10 ml Q8HR IV 03/18/25 22:00 03/21/25 22:33 10 ML Acetaminophen/ Hydrocodone Bitart 1 tab Q4HP PRN PO 03/18/25 16:00 Ondansetron HCl 4 mg Q4HP PRN IV 03/18/25 16:00 Docusate Sodium 100 mg BIDPRN PRN PO 03/18/25 16:00 Acetaminophen 650 mg Q6HP PRN PO 03/18/25 16:00 Nitroglycerin 0.4 mg Q5MINP PRN SL 03/18/25 16:00 Morphine Sulfate 2 mg Q30M PRN IV 03/18/25 16:00 Hydralazine HCl 10 mg Q6HP PRN IV 03/18/25 16:00 03/20/25 17:33 10 MG Atorvastatin Calcium 20 mg HS PO 03/18/25 22:00 03/21/25 22:33 20 MG Tamsulosin HCl 0.4 mg QPM PO 03/18/25 18:00 03/21/25 18:18 0.4 MG Pantoprazole Sodium 40 mg DAILY IV 03/20/25 10:00 03/21/25 09:57 40 MG Losartan Potassium 100 mg DAILY PO 03/21/25 10:00 03/21/25 09:57 100 MG objective General: NAD, AAOX3 Chest: lung castellano clear to auscultation Heart: RRR, no murmur Abdomen: non-distended, no tenderness to palpation, +BS laboratory and microbiology Laboratory Tests 03/20/25 05:39 Test 03/20/25 05:39 Range/Units Serum Glucose 93 74-106 mg/dL Problems(with codes): (1) Bright red blood per rectum (2) Generalized weakness (3) Abdominal hernia (4) Diverticular disease Prognosis Plan H&H is stable Patient will need outpatient elective barium enema Outpatient elective repair of ventral hernia Repeat colonoscopy after the above Advance diet as tolerated Discharge planning as per hospitalist Dietary Evaluation Review Comments: 1.follow GI consult report, reassess as needed 2.advance to diet texture as tolearated when medcially feasible Expected Outcomes/Goals: mintain wt Plan discussed with: Patient MARIA R GREENE MD Mar 21, 2025 22:55
[2025-03-22] VITALS (8 sets, daily range): BP systolic 138–172; BP diastolic 79–96; PULSE 64–82; RESP 16–20; TEMP 36.1; O2SAT 94–98
--- NOTE | 2025-03-22 11:55 | DVHDS2 ---
Discharge Summary Date of Admission Mar 18, 2025 at 15:55 Date of Discharge: Mar 22, 2025 Admitting Diagnosis Rectal bleeding Hypertensive urgency Uncontrolled hypertension Mixed hyperlipidemia Labs/Diagnostic Data: Laboratory Results Test 03/20/25 05:39 03/19/25 14:08 03/18/25 09:56 White Blood Count 4.9 10^3/uL (4.4-10.8) Red Blood Count 3.51 10^6/uL (4.5-5.90) Hemoglobin 10.3 g/dL (13.5-17.5) Hematocrit 30.6 % (41.0-53.0) Mean Corpuscular Volume 87.2 fL (80.0-100.0) Mean Corpuscular Hemoglobin 29.4 pg (28.0-32.0) Mean Corpuscular Hemoglobin Concent 33.7 g/dL (32.0-36.0) Red Cell Distribution Width 14.3 % (11.8-14.3) Platelet Count 208 10^3/uL (140-450) Mean Platelet Volume 9.3 fL (6.9-10.8) Neutrophils (%) (Auto) 61.1 % (37.0-80.0) Lymphocytes (%) (Auto) 25.1 % (10.0-50.0) Monocytes (%) (Auto) 10.6 % (0.0-12.0) Eosinophils (%) (Auto) 2.1 % (0.0-7.0) Basophils (%) (Auto) 1.1 % (0.0-2.0) Neutrophils # (Auto) 3.0 10 ^3/uL (1.6-8.6) Lymphocytes # (Auto) 1.2 10 ^3/uL (0.4-5.4) Monocytes # (Auto) 0.5 10 ^3/uL (0-1.3) Eosinophils # (Auto) 0.1 10 ^3/uL (0-0.8) Basophils # (Auto) 0.1 10 ^3/uL (0-0.2) Nucleated Red Blood Cells 0.1 % Sodium Level 142 mmol/L (136-145) Potassium Level 3.8 mmol/L (3.5-5.1) Chloride Level 106 mmol/L (98-107) Carbon Dioxide Level 26 mmol/L (20-31) Anion Gap 10 (5-15) Blood Urea Nitrogen 9 mg/dL (9-23) Creatinine 0.82 mg/dL (0.700-1.30) Glomerular Filtration Rate Calc 95 mL/min (>90) BUN/Creatinine Ratio 11.0 (10.0-20.0) Serum Glucose 93 mg/dL (74-106) Calcium Level 8.6 mg/dL (8.7-10.4) Magnesium Level 2.3 mg/dL (1.6-2.6) Total Bilirubin 1.4 mg/dL (0.2-1.0) Aspartate Amino Transferase (AST) 18 U/L (<34) Alanine Aminotransferase (ALT) 10 U/L (7-40) Alkaline Phosphatase 71 U/L (46-116) Total Protein 6.1 g/dL (5.7-8.2) Albumin 3.9 g/dL (3.2-4.8) Prothrombin Time 11.0 sec (9.3-11.8) Prothrombin Time INR 1.04 (0.9-1.15) Urine Color Yellow (Yellow) Urine Clarity Clear (Clear) Urine pH 5.0 (5.0-9.0) Urine Specific [place] 1.027 (1.001-1.035) Urine Protein Negative (Negative) Urine Ketones Negative (Negative) Urine Blood Negative /uL (Negative) Urine Nitrite Negative (Negative) Urine Bilirubin Negative (Negative) Urine Urobilinogen Normal mg/dL (Negative) Urine Leukocyte Esterase Negative /uL (Negative) Urine RBC 1 /hpf (0 - 3) Urine Microscopic WBC < 1 /HPF (0-3) Urine Squamous Epithelial Cells Few /hpf (<5) Urine Bacteria None seen /hpf (None Seen) Urine Mucus Few (None Seen) Urine Glucose Normal mg/dL (Normal) Other Laboratory Tests 03/20/25 05:39 Brief Hx & Hospital Course: This is a 69 years old male with past medical history hypertension and hyperlipidemia who was not on any medication for year come to emergency department because of bleeding per rectum. The patient was admitted. Hemoglobin was stable. The patient subsequently has colonoscopy done. It showed: The Patient had [id number] sigmoid diverticular disease with minimal residual blood-tinged fluid in this area that was aspirated but no active bleeding was seen, likely source of bleeding was the sigmoid diverticular area. There was a 1 cm benign-appearing descending colon polyp at about 35 cm above the anal verge which was removed by hot snare polypectomy and the specimens were retrieved. 1+ internal hemorrhoids otherwise normal examination up to the mid to proximal transverse colon beyond which the colonoscope could not be advanced because of extensive coiling within a large ventral hernia sac . Dr. Cano recommend outpatient barium enema study and also outpatient surgery evaluation for ventral hernia repair. Today the patient did not have any rectal bleed. Hemoglobin is stable. I am going to discharge him home. Advised him to follow up with GI specialist Dr. Cano 2-4 weeks. Follow up with primary care physician per schedule. Activity as tolerated. Diet per home diet. Physical exam: HEENT: Normocephalic atraumatic pupils equal react to light and accommodation. Extraocular muscles intact, conjunctiva pink, oropharynx moist, no thrush, no exudate. Lymphatic: No lymphadenopathy Cardiovascular exam: S1, S2 was heard. No murmurs, rubs, gallops Lung: Clear on auscultation bilaterally, no wheeze, rale, rhonchi. GI: Abdominal soft, nondistended, nontenderness, positive bowel sounds. Extremity: No crepitus, cyanosis, edema. Pedal pulses present bilateral. Full range of motion. Skin: Normal turgor, no rash. Psych: Alert, oriented x3. Neurology: No focal deficits, cranial nerve II to XII grossly intact. This medical document was created using an electronic medical record system with [employer] direct computerized dictation system. Although this document has been carefully reviewed, there may still be some phonetic and typographical errors. These areas are purely typographical due to imperfections of the software programs, and do not reflect any compromise in the patient's medical care. Condition at Discharge: Stable Final Diagnosis/Problems List Rectal bleeding Hypertensive urgency Uncontrolled hypertension Mixed hyperlipidemia Ventral hernia Discharge Disposition: Home Discharge Statement: "Patient was advised to return to the ER or call 911 if any headaches, dizziness, shortness of breath, chest pain, abdominal pain, bleeding, fevers, or worsening of medical condition. Patient was counseled about treatment plan, medications, possible side effects, patientverbalized understanding. All questions were answered to the best of my ability. This discharge took greater then 30 minutes in planning, reviewing documentation, counseling the patient, and discussing with other team members." ASSESSMENT ASSESSMENT Assessment Date of Service: Mar 22, 2025 Billing Provider: LOPEZ MACEDO MD Common Visit Codes: 15830-RAQ/OBS DISCH DAY >30min LOPEZ MACEDO MD Mar 22, 2025 11:55
[2025-03-22] MEDS ORDERED: PANT40TA2 PO (11:57)
[2025-03-22] MEDS ORDERED: TAMS-35 PO (11:57)
[2025-03-22] MEDS ORDERED: LOSA-535 PO (11:57)
--- NOTE | 2025-03-22 11:59 | DVHPN2 ---
Reviewed: Care Plan, H&P, Labs, Medications, Previous Orders, Radiology Eyes: No Pain, No Vision change, No Conjunctivae inflammation, No Eyelid inflammation, No Other, No Redness ENT: No Ear pain, No Ear discharge, No Nose pain, No Nose discharge, No Nose congestion, No Mouth pain, No Mouth swelling, No Throat pain, No Throat swelling, No Other Cardiovascular: No Chest Pain, No Palpitations, No Orthopnea, No Paroxysmal Noc. Dyspnea, No Edema, No Lt Headedness; Other (elevated blood pressure) Respiratory: No Cough, No Dry, No Shortness of breath, No SOB with excertion, No Wheezing, No Hemoptysis, No Pleuritic Pain, No Sputum, No Other Gastrointestinal: No Nausea, No Vomiting; Abdominal Pain (lLQ); No Diarrhea, No Constipation, No Melena, No Hematochezia; Other (bleeding from rectum) Genitourinary: No Dysuria, No Frequency, No Incontinence, No Hematuria, No Retention, No Other Musculoskeletal: No other, No neck pain, No shoulder pain, No arm pain, No back pain, No hand pain, No leg pain, No foot pain Skin: No Rash, No Lesions, No Jaundice, No Bruising, No Other Objective Vitals Vital Signs Date Time Temp Pulse Resp B/P (MAP) Pulse Ox O2 Delivery O2 Flow Rate FiO2 03/22/25 09:18 152/88 03/22/25 09:15 73 18 97 03/22/25 08:26 98.1 98.1 03/21/25 20:00 Room Air* 0 21 Intake/Output Intake and Output 03/22/25 07:00 Intake Total 1756 ml Balance 1756 ml Intake Oral 1756 ml # Voids 5 # Bowel Movements 1 General Appearance: Alert, Oriented X3, Cooperative, No acute distress Lungs: Clear to auscultation Cardiovascular: Regular rate, Normal S1 Abdomen: Normal bowel sounds, Soft, No tenderness Extremities: No edema Medications Current Medications Medications Dose Ordered Sig/Zamzam Route Start Time Stop Time Status Last Admin Dose Admin Sodium Chloride 10 ml Q8HR IV 03/18/25 22:00 03/22/25 06:19 10 ML Acetaminophen/ Hydrocodone Bitart 1 tab Q4HP PRN PO 03/18/25 16:00 Ondansetron HCl 4 mg Q4HP PRN IV 03/18/25 16:00 Docusate Sodium 100 mg BIDPRN PRN PO 03/18/25 16:00 Acetaminophen 650 mg Q6HP PRN PO 03/18/25 16:00 Nitroglycerin 0.4 mg Q5MINP PRN SL 03/18/25 16:00 Morphine Sulfate 2 mg Q30M PRN IV 03/18/25 16:00 Hydralazine HCl 10 mg Q6HP PRN IV 03/18/25 16:00 03/20/25 17:33 10 MG Atorvastatin Calcium 20 mg HS PO 03/18/25 22:00 03/21/25 22:33 20 MG Tamsulosin HCl 0.4 mg QPM PO 03/18/25 18:00 03/21/25 18:18 0.4 MG Pantoprazole Sodium 40 mg DAILY IV 03/20/25 10:00 03/22/25 09:19 40 MG Losartan Potassium 100 mg DAILY PO 03/21/25 10:00 03/22/25 09:18 100 MG Laboratory Results Laboratory Tests 03/20/25 05:39 Urinalysis Test 03/18/25 09:56 Urine Color Yellow (Yellow) Urine Clarity Clear (Clear) Urine pH 5.0 (5.0-9.0) Urine Specific [place] 1.027 (1.001-1.035) Urine Protein Negative (Negative) Urine Ketones Negative (Negative) Urine Blood Negative /uL (Negative) Urine Nitrite Negative (Negative) Urine Bilirubin Negative (Negative) Urine Urobilinogen Normal mg/dL (Negative) Urine Leukocyte Esterase Negative /uL (Negative) Urine RBC 1 /hpf (0 - 3) Urine Microscopic WBC < 1 /HPF (0-3) Urine Squamous Epithelial Cells Few /hpf (<5) Urine Bacteria None seen /hpf (None Seen) Urine Mucus Few (None Seen) Urine Glucose Normal mg/dL (Normal) Assessment/Plan Assessment/Plan Rectal bleeding Hypertensive urgency Uncontrolled hypertension Mixed hyperlipidemia Plan GI consult Advance diet to regular diet Hydralazine p.r.n. Losartan 50 mg daily IV Protonix Full code Advance directives discussed for 20 minutes Colonoscopy done. No active bleeding Hemoglobin 10.3 Monitor closely Hypertension: Increase losartan to 100 mg daily Discharge planning. LOPEZ MACEDO MD Mar 22, 2025 11:59
[2025-03-22 16:14] LABS: Alanine Aminotransferase 12 U/L (7-40); Albumin 4.1 g/dL (3.2-4.8); Alkaline Phosphatase 77 U/L (46-116); Anion Gap 11 (5-15); Aspartate Aminotransferase 23 U/L (<34); BUN/Creatinine Ratio 8.3 (10.0-20.0); Calcium 9.8 mg/dL (8.7-10.4); Carbon Dioxide 25 mmol/L (20-31); Glucose 90 mg/dL (74-106); Sodium 144 mmol/L (136-145); Total Protein 6.2 g/dL (5.7-8.2)
[2025-03-22 16:15] LABS: Bilirubin, Total 1.2 mg/dL (0.2-1.0)
[2025-03-22 16:16] LABS: Blood Urea Nitrogen 7 mg/dL (9-23); Chloride 108 mmol/L (98-107); Potassium 3.5 mmol/L (3.5-5.1)
[2025-03-22 16:24] LABS: Basophils # (auto) 0.1 10 ^3/uL (0-0.2); Basophils % (auto) 0.7 % (0.0-2.0); Eosinophils # (auto) 0.1 10 ^3/uL (0-0.8); Eosinophils % (auto) 1.2 % (0.0-7.0); Hematocrit 30.1 % (41.0-53.0); Hemoglobin 10.3 g/dL (13.5-17.5); Lymphocytes # (auto) 1.2 10 ^3/uL (0.4-5.4); Lymphocytes % (auto) 16.3 % (10.0-50.0); Mean Corpuscular Hemoglobin 29.2 pg (28.0-32.0); Mean Corpuscular Hgb Conc. 34.1 g/dL (32.0-36.0); Mean Corpuscular Volume 85.5 fL (80.0-100.0); Monocytes # (auto) 0.6 10 ^3/uL (0-1.3); Monocytes % (auto) 8.8 % (0.0-12.0); Neutrophils # (auto) 5.2 10 ^3/uL (1.6-8.6); Nucleated Red Blood Cells % 0.1 %; Platelet Count (auto) 233 10^3/uL (140-450); Red Blood Cells 3.52 10^6/uL (4.5-5.90); Red Cell Distribution Width 14.5 % (11.8-14.3); White Blood Cell 7.1 10^3/uL (4.4-10.8)
--- NOTE | 2025-03-22 21:59 | DVHPN2 ---
Progress Note - Dictate Date Seen: Mar 22, 2025 (Late entry Patient seen at 3:00 p.m.) Medical Necessity Reason Pt with a Central, PICC or Fol: No Subjective No new complaints Large ventral hernia Incomplete colonoscopy Likely bleeding from sigmoid diverticulosis now resolved vital signs Vital Sign Date Time Temp Pulse Resp B/P (MAP) Pulse Ox O2 Delivery O2 Flow Rate FiO2 03/22/25 17:00 96.9 76 20 149/79 (102) 98 96.9 03/22/25 08:00 Room Air* 0 21 Total Intake and Output 03/21/25 03/21/25 03/22/25 15:00 23:00 07:00 Intake Total 120 ml 800 ml 836 ml Balance 120 ml 800 ml 836 ml objective General: NAD, AAOX3 Chest: lung cast[place] clear to auscultation Heart: RRR, no murmur Abdomen: non-distended, no tenderness to palpation, +BS laboratory and microbiology Laboratory Tests 03/22/25 15:35 Test 03/22/25 15:35 Range/Units Serum Glucose 90 74-106 mg/dL Problems(with codes): (1) Diverticular disease (2) Abdominal hernia (3) Hypertensive emergency (4) Bright red blood per rectum (5) Generalized weakness Prognosis Plan Advance diet as tolerated Discharge planning in progress Outpatient follow up with me to arrange elective barium enema Outpatient surgical referral for ventral hernia repair Repeat colonoscopy after repair of ventral hernia Dietary Evaluation Review Comments: 1.follow GI consult report, reassess as needed 2.advance to diet texture as tolearated when medcially feasible Expected Outcomes/Goals: mintain wt Plan discussed with: Patient MARIA R GREENE MD Mar 22, 2025 21:59
== END 2025-03-22 18:00 | disposition home or self-care (01) | DRG 393 ==
LOC: ER 09:46 → OVERFLOW 15:55 → TELE-EAST 16:14
PROVIDERS: ADMIT Internal Medicine; ATTEND Internal Medicine
PROC: BD14YZZ Fluoroscopy of Colon using Other Contrast (ICD-10-PCS; 2025-03-20)
PROC: 0DBM8ZZ Excision of Descending Colon, Via Natural or Artificial Opening Endoscopic (ICD-10-PCS; principal; 2025-03-20 11:49)
DX: K63.5 Polyp of colon (principal); K57.31 Diverticulosis of large intestine without perforation or abscess with bleeding; I16.1 Hypertensive emergency; K64.8 Other hemorrhoids; E78.2 Mixed hyperlipidemia; N40.0 Benign prostatic hyperplasia without lower urinary tract symptoms; K43.9 Ventral hernia without obstruction or gangrene; I25.10 Atherosclerotic heart disease of native coronary artery without angina pectoris; I10 Essential (primary) hypertension
CPT/HCPCS: 36415; 71045; 71260; 74177; 80048; 80053; 81001; 83735; 85025; 85610; 96374; 99291; G0378; J2250; J2405; J2470; J2704

== ENCOUNTER 2025-06-06 10:38 | Outpatient (CLI) | payer OTHER ==
[~2025-06-06 10:38] MED LIST changes: -ATOR20TA50 PO; -FIN5T PO; -LEVO500T31 PO; -LOSA-534 PO; +LOSA-535 PO; +PANT40TA2 PO
[2025-06-06 11:03] LABS: Hematocrit 37.4 % (41.0-53.0); Hemoglobin 12.0 g/dL (13.5-17.5); Mean Corpuscular Hemoglobin 22.2 pg (28.0-32.0); Mean Corpuscular Volume 69.5 fL (80.0-100.0); Nucleated Red Blood Cells % 0.1 %
[2025-06-06 11:17] LABS: Urine Protein, UAD 1+ (Negative)
[2025-06-06 11:28] LABS: Alanine Aminotransferase 15 U/L (7-40); Albumin 4.2 g/dL (3.2-4.8); Alkaline Phosphatase 95 U/L (46-116); Anion Gap 10 (5-15); BUN/Creatinine Ratio 15.6 (10.0-20.0); Bilirubin, Total 0.8 mg/dL (0.2-1.0); Blood Urea Nitrogen 15 mg/dL (9-23); Calcium 9.1 mg/dL (8.7-10.4); Carbon Dioxide 25 mmol/L (20-31); Cholesterol 161 mg/dL (< 200); Glucose 91 mg/dL (74-106); HDL Cholesterol 43 mg/dL (40-59); Potassium 3.8 mmol/L (3.5-5.1); Sodium 145 mmol/L (136-145); Total Protein 6.9 g/dL (5.7-8.2); Triglycerides 102 mg/dL (< 150)
[2025-06-06 11:30] LABS: Chloride 110 mmol/L (98-107)
== END 2025-06-06 17:00 | disposition home or self-care (01) ==
LOC: LAB 10:38
PROVIDERS: ATTEND Internal Medicine
DX: I10 Essential (primary) hypertension (principal); K57.30 Diverticulosis of large intestine without perforation or abscess without bleeding; Z00.01 Encounter for general adult medical examination with abnormal findings
CPT/HCPCS: 36415; 80053; 80061; 81001; 83036; 84439; 84443; 85025

== ENCOUNTER 2025-07-23 09:07 | Outpatient (CLI) | payer OTHER ==
[2025-07-23 10:19] LABS: Anion Gap 9 (5-15); Calcium 9.0 mg/dL (8.7-10.4); Carbon Dioxide 25 mmol/L (20-31); Chloride 107 mmol/L (98-107); Potassium 4.3 mmol/L (3.5-5.1); Sodium 141 mmol/L (136-145)
[2025-07-23 10:25] LABS: Blood Urea Nitrogen 17 mg/dL (9-23)
[2025-07-23 10:26] LABS: BUN/Creatinine Ratio 17.0 (10.0-20.0); Glucose 86 mg/dL (74-106)
[2025-07-24 12:07] LABS: Prostate Specific Antigen 5.8 ng/mL (0.0-4.0)
== END 2025-07-23 17:00 | disposition home or self-care (01) ==
LOC: LAB 09:07
PROVIDERS: ATTEND Internal Medicine
DX: N17.9 Acute kidney failure, unspecified (principal); R97.20 Elevated prostate specific antigen [PSA]
CPT/HCPCS: 36415; 80048; 84153; 84154

== ENCOUNTER → 2025-08-13 | Outpatient (CLI) | payer OTHER ==
[2025-08-13 10:31] LABS: Potassium 4.1 mmol/L (3.5-5.1); Sodium 144 mmol/L (136-145)
[2025-08-13 10:32] LABS: Anion Gap 11 (5-15); Calcium 9.3 mg/dL (8.7-10.4); Carbon Dioxide 26 mmol/L (20-31)
[2025-08-13 10:37] LABS: BUN/Creatinine Ratio 14.3 (10.0-20.0); Blood Urea Nitrogen 15 mg/dL (9-23); Glucose 80 mg/dL (74-106)
[2025-08-13 10:40] LABS: Chloride 107 mmol/L (98-107)
== END | disposition home or self-care (01) ==
LOC: LAB 09:30
PROVIDERS: ATTEND Internal Medicine
DX: I10 Essential (primary) hypertension (principal)
CPT/HCPCS: 36415; 80048